=== PATIENT | male | born 1935 | race Caucasian/White ===

== ENCOUNTER 2020-06-28 13:06 | Emergency (ER) | payer MEDICARE ==
[2020-06-28 15:54] LABS: #Eosinphils 0.1 thou/uL (0.0-0.7); #Lymphocytes 1.3 thou/uL (1.20-3.40); #Monocytes 0.8 thou/uL (0.11-0.59); #Neutrophils 6.4 thou/uL (1.40-6.50); %Basophils 0.5 % (0.0-1.0); %Eosinophils 1.2 % (0.0-10.0); %Lymphocytes 14.9 % (21.0-51.0); %Monocytes 9.1 % (0.0-10.0); %Neutrophils 74.4 % (42.0-75.0); Hemoglobin 12.7 g/dL (14.0-18.0); Mean Corpuscular HGB CONC 32.7 g/dL (32.0-36.0); Mean Platelet Volume 8.3 fL (7.4-10.4); Platelet Count 258 thou/uL (130-400); RBC Distribution Width 14.8 % (11.5-14.5); Red Blood Cell (RBC) Count 3.85 mill/uL (4.70-6.10); White Blood Cell (WBC) Count 8.6 thou/uL (4.8-10.8)
[2020-06-28 16:15] LABS: Lactic Acid 1.6 mmol/L (0.5-2.2)
[2020-06-28 16:20] LABS: ALT (SGPT) 7 U/L (8-55); AST (SGOT) 14 U/L (5-34); Albumin 3.1 g/dL (3.4-4.8); Alkaline Phosphatase 53 U/L (40-110); Anion Gap 13 mmol/L (10-20); BUN (Urea Nitrogen) 31 mg/dL (8.4-25.7); Bilirubin, Total 0.6 mg/dL (0.2-1.2); Calc. Creatinine Clearance 0 mL/min (70-130); Calcium 8.9 mg/dL (7.8-10.44); Carbon Dioxide 22 mmol/L (23-31); Chloride 110 mmol/L (98-107); Globulin 3.1 g/dL (2.4-3.5); Glucose 105 mg/dL (83-110); Potassium 3.5 mmol/L (3.5-5.1); Protein, Total 6.2 g/dL (5.8-8.1); Sodium 141 mmol/L (136-145)
[2020-06-28 16:21] LABS: PTT 24.7 sec (22.9-36.1)
[2020-06-28 16:31] LABS: Bacteria/HPF None Seen HPF (None Seen); Bilirubin Negative (Negative); Blood, Urine Negative (Negative); Clarity Clear (Clear); Glucose, Urine (Dipstick) Normal (Negative); Ketone, Urine Negative (Negative); Leukocyte Negative Leu/uL (Negative); Nitrite Negative (Negative); Protein, Urine (Dipstick) 20 mg/dL (Neg-Trace); RBC/HPF 0-3 HPF (0-3); Specific Gravity, Urine 1.021 (1.002-1.036); Squamous Epithelial 0-3 HPF (0-3); Urobilinogen Normal mg/dL (Less than 2); WBC/HPF 0-3 HPF (0-3); pH, Urine 5.5 (5.0-9.0)
== END 2020-06-28 18:49 | disposition home or self-care (01) ==
LOC: ERS 13:06
DX: R53.1 Weakness (principal); R19.7 Diarrhea, unspecified; W19.XXXA Unspecified fall, initial encounter
CPT/HCPCS: 71045; 80053; 81001; 82274; 83605; 85025; 85610; 85730; 86850; 86900; 86901

== ENCOUNTER 2020-11-19 13:24 | Emergency (ER) | payer MEDICARE ==
[2020-11-19] MEDS ORDERED: Acetaminophen 325 MG TAB ONE (15:58)
== END 2020-11-19 16:45 | disposition home or self-care (01) ==
LOC: ERS 13:24
DX: M25.522 Pain in left elbow (principal); W19.XXXA Unspecified fall, initial encounter; I10 Essential (primary) hypertension; Z86.73 Personal history of transient ischemic attack (TIA), and cerebral infarction without residual deficits; Z87.891 Personal history of nicotine dependence

== ENCOUNTER 2023-01-19 18:14 | Inpatient (IN) | payer OTHER ==
[2023-01-19] MEDS ORDERED: hydrALAZINE 20 MG/ML VIAL ONE (18:22)
[2023-01-19 18:36] LABS: #Basophils 0.1 thou/uL (0.0-0.2); #Eosinphils 0.1 thou/uL (0.0-0.7); #Neutrophils 11.2 thou/uL (1.40-6.50); %Basophils 0.4 % (0.0-1.0); %Eosinophils 0.8 % (0.0-10.0); %Lymphocytes 8.2 % (21.0-51.0); %Monocytes 7.4 % (0.0-10.0); %Neutrophils 82.7 % (42.0-75.0); Hematocrit 32.8 % (42.0-52.0); Mean Corpuscular HGB CONC 33.5 g/dL (32.0-36.0); Mean Corpuscular Hemoglobin 33.7 pg (27.0-31.0); Mean Corpuscular Volume 100.6 fl (78.0-98.0); Mean Platelet Volume 10.7 fL (7.4-10.4); Platelet Count 166 10x3/uL (130-400); RBC Distribution Width 14.2 % (11.5-14.5); Red Blood Cell (RBC) Count 3.26 mill/uL (4.70-6.10); White Blood Cell (WBC) Count 13.6 10x3/uL (4.8-10.8)
[2023-01-19 18:48] LABS: PTT 28.5 sec (22.9-36.1)
[2023-01-19 18:49] LABS: INR-International Normal Ratio 1.8; Prothrombin Time 21.4 sec (12.0-14.7)
[2023-01-19 18:58] LABS: Acetaminophen Less than 10 mcg/mL (10.0-30.0); Alcohol Less than 10.0 mg/dL (Less than 10); Lipase 34 U/L (8-78); Magnesium 1.9 mg/dL (1.6-2.6); Salicylate Less than 8.0 mg/dL (15.0-30.0)
[2023-01-19 18:59] LABS: ALT (SGPT) 12 U/L (8-55); AST (SGOT) 20 U/L (5-34); Albumin 3.1 g/dL (3.4-4.8); Alkaline Phosphatase 55 U/L (40-110); Anion Gap 14 mmol/L (10-20); BUN (Urea Nitrogen) 38 mg/dL (8.4-25.7); Bilirubin, Total 0.3 mg/dL (0.2-1.2); CK (CPK) 45 U/L (30-200); Calc. Creatinine Clearance 0 mL/min (70-130); Calcium 8.6 mg/dL (7.8-10.44); Carbon Dioxide 24 mmol/L (23-31); Chloride 106 mmol/L (98-107); Estimated GFR 41; Globulin 2.3 g/dL (2.4-3.5); Glucose 116 mg/dL (83-110); Potassium 4.6 mmol/L (3.5-5.1); Protein, Total 5.4 g/dL (5.8-8.1); Sodium 139 mmol/L (136-145)
[2023-01-19 19:00] LABS: Bilirubin Negative (Negative); Blood, Urine 1+ (Negative); CAUTI Indications for Culture Alt mental st,lethar; Clarity Turbid (Clear); Glucose, Urine (Dipstick) Normal (Negative); Ketone, Urine Negative (Negative); Leukocyte 500 Leu/uL (Negative); Nitrite Negative (Negative); Protein, Urine (Dipstick) 20 mg/dL (Neg-Trace); Specific Gravity, Urine 1.017 (1.002-1.036); Squamous Epithelial 0-3 HPF (0-3); Urobilinogen Normal mg/dL (Less than 2)
[2023-01-19 19:04] LABS: Amphetamine Not Detected (NotDetected); Barbiturates Screen Not Detected (NotDetected); Benzodiazepine Screen Not Detected (NotDetected); Cocaine Metabolite Screen Not Detected (NotDetected); Methadone Not Detected (NotDetected); Methamphetamine Not Detected (NotDetected); Opiate Screen Not Detected (NotDetected); Oxycodone Screen Not Detected (NotDetected); Phencyclidine (PCP) Not Detected (NotDetected); THC/Cannabinoid Screen Not Detected (NotDetected); Tricyclic Screen Not Detected (NotDetected)
[2023-01-19 19:08] LABS: Urine Culture Reflex No No
[2023-01-19] MEDS ORDERED: [UNRECOGNIZED DRUG - OTHER] IV SCH ×3 (20:00→22:00)
[2023-01-19] MEDS ORDERED: HUMAN PROTHROMBIN COMPLX IV SCH ×3 (20:00→22:00)
[2023-01-19] MEDS ORDERED: HUM PROTHROMBIN CPLX IV SCH ×3 (20:00→22:00)
[2023-01-19] MEDS ORDERED: Vancomycin 1 GM VIAL ONE ×4 (20:14→22:02)
[2023-01-19] MEDS ORDERED: Thrombin 5000 UNITS/5 ML VIAL ONE (20:14)
[2023-01-19] MEDS ORDERED: EPINEPHrine 1 MG/ML VIAL ONE (20:16)
[2023-01-19] MEDS ORDERED: Bupivacaine PF 0.5% 30 ML VIAL ONE (20:16)
[2023-01-19] MEDS ORDERED: fentaNYL 50 mcg/mL 1 mL Vial ONE (20:22)
[2023-01-19] MEDS ORDERED: PROPOFOL 20 ML ONE (20:22)
[2023-01-19] MEDS ORDERED: Bacitracin Zinc Ointment 30 gm TUBE ONE (20:29)
[2023-01-19] MEDS ORDERED: Famotidine/PF 20 mg/2ml Vial ONE (20:50)
[2023-01-19] MEDS ORDERED: Lidocaine 2% PF 5 ML VIAL ONE (20:52)
[2023-01-19] MEDS ORDERED: Rocuronium Bromide 10 MG/ML (10ML VIAL) ONE ×3 (20:52→20:55)
[2023-01-19] MEDS ORDERED: Ondansetron PF 4 MG/2 ML Vial ONE ×2 (20:55→21:34)
[2023-01-19] MEDS ORDERED: PHENYLEPHRINE-NS 100 MCG/ML 10 ML SYRINGE ONE ×4 (20:55→22:28)
[2023-01-19] MEDS ORDERED: ePHEDrine Sulfate 50 MG/10 ML VIAL ONE ×2 (20:55→21:36)
[2023-01-19] MEDS ORDERED: PROPOFOL 200 MG/20 ML VIAL ONE (20:55)
[2023-01-19] MEDS ORDERED: Lidocaine 1% PF 5 ML VIAL ONE (20:55)
[2023-01-19] MEDS ORDERED: Dexamethasone 20 MG/5 ML VIAL ONE ×2 (20:55→21:34)
[2023-01-19] MEDS ORDERED: CEFAZOLIN 1 GM VIAL ONE ×2 (21:09)
[2023-01-19] MEDS ORDERED: SUGAMMADEX SODIUM 200 MG/2 ML VIAL ONE (21:34)
[2023-01-19] MEDS: hydrALAZINE 20 MG/ML VIAL SLOW IVP PRN (23:51)
[2023-01-20 03:25] LABS: #Monocytes 0.4 thou/uL (0.11-0.59); #Neutrophils 8.5 thou/uL (1.40-6.50); %Basophils 0.2 % (0.0-1.0); %Lymphocytes 4.1 % (21.0-51.0); %Monocytes 3.9 % (0.0-10.0); %Neutrophils 91.5 % (42.0-75.0); Hemoglobin 10.5 g/dL (14.0-18.0); Mean Corpuscular HGB CONC 31.8 g/dL (32.0-36.0); Mean Corpuscular Hemoglobin 33.3 pg (27.0-31.0); Mean Platelet Volume 10.8 fL (7.4-10.4); Platelet Count 135 10x3/uL (130-400); RBC Distribution Width 14.6 % (11.5-14.5); Red Blood Cell (RBC) Count 3.15 mill/uL (4.70-6.10); White Blood Cell (WBC) Count 9.3 10x3/uL (4.8-10.8)
[2023-01-20 03:52] LABS: Anion Gap 13 mmol/L (10-20); BUN (Urea Nitrogen) 37 mg/dL (8.4-25.7); Calc. Creatinine Clearance 34 mL/min (70-130); Calcium 8.6 mg/dL (7.8-10.44); Carbon Dioxide 22 mmol/L (23-31); Chloride 106 mmol/L (98-107); Estimated GFR 47; Glucose 162 mg/dL (83-110); Mean Corpuscular Volume 104.8 fl (78.0-98.0); Potassium 4.3 mmol/L (3.5-5.1); Sodium 137 mmol/L (136-145)
[2023-01-20] MEDS: hydrALAZINE 20 MG/ML VIAL SLOW IVP PRN ×2 (05:07→09:19)
[2023-01-20] MEDS: CEFAZOLIN 2 GM in Sodium Chloride 0.9% 100 ML IVPB SCH ×3 (05:43→22:30)
[2023-01-20] MEDS ORDERED: Senokot 8.6 MG TAB PO PRN (06:11)
[2023-01-20] MEDS ORDERED: Sodium Chloride 0.9% 500 ML IV SCH (06:15)
[2023-01-20] MEDS: Levothyroxine Sodium 125 MCG TAB PO SCH (06:19)
[2023-01-20] MEDS ORDERED: levETIRAcetam 500 MG/5 ML VIAL SLOW IVP SCH (07:00)
[2023-01-20] MEDS: Tamsulosin HCl 0.4 MG CAP PO SCH (07:32)
[2023-01-20] MEDS: Donepezil HCl 10 MG TAB PO SCH (07:32)
[2023-01-20] MEDS: Carvedilol 6.25 MG TAB PO SCH ×2 (07:32→15:54)
[2023-01-20] MEDS: Pantoprazole 40 MG VIAL IVP SCH (10:00)
[2023-01-20] MEDS: Sodium Chloride 0.9% 1,000 ML IV SCH ×2 (10:34→22:09)
[2023-01-20] MEDS ORDERED: Nystatin Powder 15 GM BOT TOP PRN (21:08)
[2023-01-20] MEDS: Morphine 2 MG/ML VIAL SLOW IVP PRN (21:53)
[2023-01-20] MEDS: levETIRAcetam 500 MG/5 ML VIAL SLOW IVP SCH (21:53)
[2023-01-21] MEDS: hydrALAZINE 20 MG/ML VIAL SLOW IVP PRN ×2 (00:34→01:56)
[2023-01-21] MEDS ORDERED: Sodium Chloride 0.9% 250 ML IV SCH ×2 (04:45→05:00)
[2023-01-21] MEDS: Levothyroxine Sodium 125 MCG TAB PO SCH (05:17)
[2023-01-21] MEDS: CEFAZOLIN 2 GM in Sodium Chloride 0.9% 100 ML IVPB SCH ×3 (05:22→20:45)
[2023-01-21] MEDS: Carvedilol 6.25 MG TAB PO SCH ×2 (08:41→16:25)
[2023-01-21] MEDS: Donepezil HCl 10 MG TAB PO SCH (08:42)
[2023-01-21] MEDS: Tamsulosin HCl 0.4 MG CAP PO SCH (08:42)
[2023-01-21] MEDS: levETIRAcetam 500 MG/5 ML VIAL SLOW IVP SCH ×2 (09:24→20:44)
[2023-01-21] MEDS: Pantoprazole 40 MG VIAL IVP SCH (09:24)
[2023-01-21] MEDS: Labetalol HCl 100 MG/20 ML VIAL SLOW IVP PRN ×2 (11:59→15:22)
[2023-01-21] MEDS: Sodium Chloride 0.9% 1,000 ML IV SCH (12:00)
[2023-01-21] MEDS ORDERED: Ipratropium/Albuterol 3 ML NEB NEB SCH (13:15)
[2023-01-21] MEDS: niCARdipine 25 MG in Sodium Chloride 0.9% 250 ML 250 ML IVPB SCH (16:39)
[2023-01-21] MEDS: Ipratropium/Albuterol 3 ML NEB NEB SCH (18:17)
[2023-01-21] MEDS: Morphine 2 MG/ML VIAL SLOW IVP PRN (21:31)
[2023-01-22] MEDS: niCARdipine 25 MG in Sodium Chloride 0.9% 250 ML 250 ML IVPB SCH (02:19)
[2023-01-22] MEDS: Sodium Chloride 0.9% 1,000 ML IV SCH ×2 (02:20→16:48)
[2023-01-22] MEDS: Levothyroxine Sodium 125 MCG TAB PO SCH (05:18)
[2023-01-22] MEDS: CEFAZOLIN 2 GM in Sodium Chloride 0.9% 100 ML IVPB SCH ×2 (05:18→21:25)
[2023-01-22] MEDS: Ipratropium/Albuterol 3 ML NEB NEB SCH ×4 (07:23→18:06)
[2023-01-22] MEDS: Tamsulosin HCl 0.4 MG CAP PO SCH (08:45)
[2023-01-22] MEDS: Carvedilol 6.25 MG TAB PO SCH ×2 (08:45→16:49)
[2023-01-22] MEDS: Donepezil HCl 10 MG TAB PO SCH (08:45)
[2023-01-22] MEDS: levETIRAcetam 500 MG/5 ML VIAL SLOW IVP SCH ×2 (08:47→21:22)
[2023-01-22] MEDS: Pantoprazole 40 MG VIAL IVP SCH (08:47)
[2023-01-22] MEDS ORDERED: DISCONTINUE PREVIOUS NARCOTIC PAIN MEDICATIONS AND BENZODIAZEPINES FS SCH (09:45)
[2023-01-22] MEDS ORDERED: Fentanyl BOLUS 250 ML IVPB PRN (09:45)
[2023-01-22] MEDS ORDERED: Propofol BOLUS 1,000 MG/100 ML VIAL IV PRN (09:45)
[2023-01-22] MEDS ORDERED: Fentanyl CADD 100 ML IV SCH (09:45)
[2023-01-22] MEDS ORDERED: Midazolam HCl 2 mg/2 ml Vial SLOW IVP SCH (09:45)
[2023-01-22] MEDS ORDERED: Dexmedetomidine 400 MCG, Admixture Fee 1 EACH in Sodium Chloride 0.9% 96 ML IVPB SCH (10:00)
[2023-01-22 10:23] LABS: Actual Bicarbonate (HCO3a) 20.7 mEq/L (22-28); Base Excess (BEa) -2.7 mEq/L (-2.0 to +3.0); CO2 Tension 30.4 mmHg (35.0-45.0); Calcium, Ionized (arterial) 1.11 mmol/L (1.12-1.30); Carboxyhemoglobin (COHb) 0.2 gm% (0.0-3.0); Hematocrit-ABG 26 % (42.0-52.0); Hemoglobin (Hb) 8.7 g/dL (14.0-18.0); O2 Tension (PaO2), arterial 75.7 mmHg (> 60.0); Potassium - ABG Lab 3.35 mmol/L (3.70-5.30); pH, Arterial 7.451 (7.35-7.45)
[2023-01-22 10:25] LABS: Puncture Site RRA
[2023-01-22] MEDS ORDERED: LevoFLOXacin 750 mg/D5W 750 MG in Premix 1 BAG IVPB SCH (12:15)
[2023-01-22] MEDS: LevoFLOXacin 750 mg/D5W 750 MG in Premix 1 BAG IVPB SCH (13:16)
[2023-01-22] MEDS ORDERED: CEFAZOLIN 2 GM in Sodium Chloride 0.9% 100 ML IVPB SCH (17:30)
[2023-01-22] MEDS: Morphine 2 MG/ML VIAL SLOW IVP PRN (18:15)
[2023-01-23] MEDS: Lorazepam 2 MG/ML VIAL SLOW IVP PRN ×4 (00:36→20:30)
[2023-01-23 05:10] LABS: #Monocytes 0.8 thou/uL (0.11-0.59); %Basophils 0.3 % (0.0-1.0); %Lymphocytes 8.5 % (21.0-51.0); %Monocytes 12.1 % (0.0-10.0); %Neutrophils 78.6 % (42.0-75.0); Hematocrit 23.4 % (42.0-52.0); Hemoglobin 7.6 g/dL (14.0-18.0); Mean Corpuscular HGB CONC 32.5 g/dL (32.0-36.0); Mean Corpuscular Hemoglobin 33.3 pg (27.0-31.0); Mean Corpuscular Volume 102.6 fl (78.0-98.0); Mean Platelet Volume 11.4 fL (7.4-10.4); Platelet Count 128 10x3/uL (130-400); RBC Distribution Width 15.4 % (11.5-14.5); Red Blood Cell (RBC) Count 2.28 mill/uL (4.70-6.10); White Blood Cell (WBC) Count 6.4 10x3/uL (4.8-10.8)
[2023-01-23 05:58] LABS: Anion Gap 12 mmol/L (10-20); BUN (Urea Nitrogen) 30 mg/dL (8.4-25.7); Calc. Creatinine Clearance 37 mL/min (70-130); Calcium 7.7 mg/dL (7.8-10.44); Carbon Dioxide 21 mmol/L (23-31); Chloride 116 mmol/L (98-107); Estimated GFR 49; Glucose 86 mg/dL (83-110); Magnesium 1.8 mg/dL (1.6-2.6); Phosphorus 1.9 mg/dL (2.3-4.7); Potassium 3.3 mmol/L (3.5-5.1); Sodium 146 mmol/L (136-145)
[2023-01-23] MEDS: Sodium Chloride 0.9% 1,000 ML IV SCH (06:09)
[2023-01-23] MEDS: Levothyroxine Sodium 125 MCG TAB PO SCH (06:09)
[2023-01-23] MEDS: CEFAZOLIN 2 GM in Sodium Chloride 0.9% 100 ML IVPB SCH ×3 (06:09→22:03)
[2023-01-23] MEDS: Ipratropium/Albuterol 3 ML NEB NEB SCH ×4 (07:16→18:21)
[2023-01-23] MEDS ORDERED: Potassium Phosphate 30 MMOL in Sodium Chloride 0.9% 250 ML 250 ML IVPB SCH (08:15)
[2023-01-23] MEDS ORDERED: Magnesium 2 GM/50 ML(in water) 2 GM in Premix 1 BAG IVPB SCH (08:15)
[2023-01-23] MEDS: Carvedilol 6.25 MG TAB PO SCH ×2 (08:29→16:08)
[2023-01-23] MEDS: Pantoprazole 40 MG VIAL IVP SCH (08:37)
[2023-01-23] MEDS: Tamsulosin HCl 0.4 MG CAP PO SCH (08:37)
[2023-01-23] MEDS: levETIRAcetam 500 MG/5 ML VIAL SLOW IVP SCH ×2 (08:37→21:53)
[2023-01-23] MEDS: Donepezil HCl 10 MG TAB PO SCH (08:38)
[2023-01-23] MEDS ORDERED: FLU VACC QS2023(65UP)/MF59C/PF 60 MCG/0.5 ML SYRINGE IM ONE (09:00)
[2023-01-23] MEDS ORDERED: levETIRAcetam 500 MG/5 ML VIAL SLOW IVP SCH (12:00)
[2023-01-23] MEDS: Scopolamine 1 mg/72 hour Patch TOP SCH (15:30)
[2023-01-23] MEDS: Sodium Chloride 0.45% 1,000 ML IV SCH (17:50)
[2023-01-23] MEDS: Propofol 1,000 MG/100 ML VIAL IV PRN (19:56)
[2023-01-23] MEDS ORDERED: Lacosamide 400 MG in Sodium Chloride 0.9% 50 ML IVPB SCH (22:00)
[2023-01-24 06:02] LABS: #Eosinphils 0.1 thou/uL (0.0-0.7); #Monocytes 0.6 thou/uL (0.11-0.59); #Neutrophils 4.8 thou/uL (1.40-6.50); %Basophils 0.3 % (0.0-1.0); %Eosinophils 1.1 % (0.0-10.0); %Lymphocytes 13.8 % (21.0-51.0); %Monocytes 9.1 % (0.0-10.0); %Neutrophils 74.6 % (42.0-75.0); Hematocrit 22.7 % (42.0-52.0); Hemoglobin 7.3 g/dL (14.0-18.0); Mean Corpuscular HGB CONC 32.2 g/dL (32.0-36.0); Mean Corpuscular Hemoglobin 33.5 pg (27.0-31.0); Mean Corpuscular Volume 104.1 fl (78.0-98.0); Mean Platelet Volume 10.2 fL (7.4-10.4); Platelet Count 131 10x3/uL (130-400); RBC Distribution Width 15.8 % (11.5-14.5); Red Blood Cell (RBC) Count 2.18 mill/uL (4.70-6.10); White Blood Cell (WBC) Count 6.4 10x3/uL (4.8-10.8)
[2023-01-24] MEDS ORDERED: Fosphenytoin Sodium 1,500 MG in Sodium Chloride 0.9% 100 ML IVPB PRN (06:09)
[2023-01-24] MEDS: CEFAZOLIN 2 GM in Sodium Chloride 0.9% 100 ML IVPB SCH ×3 (06:40→21:53)
[2023-01-24 06:43] LABS: Anion Gap 8 mmol/L (10-20); BUN (Urea Nitrogen) 38 mg/dL (8.4-25.7); Calc. Creatinine Clearance 35 mL/min (70-130); Calcium 7.4 mg/dL (7.8-10.44); Carbon Dioxide 23 mmol/L (23-31); Chloride 117 mmol/L (98-107); Estimated GFR 45; Glucose 125 mg/dL (83-110); Magnesium 2.3 mg/dL (1.6-2.6); Phosphorus 2.8 mg/dL (2.3-4.7); Potassium 3.4 mmol/L (3.5-5.1); Sodium 145 mmol/L (136-145)
[2023-01-24] MEDS: Levothyroxine Sodium 125 MCG TAB PO SCH (06:43)
[2023-01-24] MEDS: Ipratropium/Albuterol 3 ML NEB NEB SCH ×4 (07:41→18:11)
[2023-01-24] MEDS ORDERED: Potassium Phosphate 30 MMOL in Sodium Chloride 0.9% 250 ML 250 ML IVPB SCH (07:45)
[2023-01-24] MEDS: Carvedilol 6.25 MG TAB PO SCH ×2 (08:52→16:43)
[2023-01-24] MEDS: Pantoprazole 40 MG VIAL IVP SCH (08:52)
[2023-01-24] MEDS: levETIRAcetam 500 MG/5 ML VIAL SLOW IVP SCH ×2 (08:52→21:53)
[2023-01-24] MEDS: Tamsulosin HCl 0.4 MG CAP PO SCH (08:52)
[2023-01-24] MEDS: Lacosamide 200 MG in Sodium Chloride 0.9% 50 ML IVPB SCH ×2 (09:07→22:38)
[2023-01-24] MEDS: Sodium Chloride 0.45% 1,000 ML IV SCH (13:53)
[2023-01-24] MEDS: LevoFLOXacin 750 mg/D5W 750 MG in Premix 1 BAG IVPB SCH (14:27)
[2023-01-24] MEDS: Propofol 1,000 MG/100 ML VIAL IV PRN (22:48)
[2023-01-25] MEDS: Labetalol HCl 100 MG/20 ML VIAL SLOW IVP PRN (04:34)
[2023-01-25 05:59] LABS: #Eosinphils 0.1 thou/uL (0.0-0.7); #Monocytes 0.8 thou/uL (0.11-0.59); %Basophils 0.6 % (0.0-1.0); %Eosinophils 1.5 % (0.0-10.0); %Lymphocytes 9.4 % (21.0-51.0); %Monocytes 12.5 % (0.0-10.0); %Neutrophils 74.4 % (42.0-75.0); Hematocrit 30.8 % (42.0-52.0); Mean Corpuscular HGB CONC 33.4 g/dL (32.0-36.0); Mean Corpuscular Hemoglobin 32.5 pg (27.0-31.0); Mean Platelet Volume 10.8 fL (7.4-10.4); Platelet Count 149 10x3/uL (130-400); RBC Distribution Width 17.1 % (11.5-14.5); Red Blood Cell (RBC) Count 3.17 mill/uL (4.70-6.10); White Blood Cell (WBC) Count 6.7 10x3/uL (4.8-10.8)
[2023-01-25 06:01] LABS: Anion Gap 11 mmol/L (10-20); BUN (Urea Nitrogen) 40 mg/dL (8.4-25.7); Calc. Creatinine Clearance 40 mL/min (70-130); Calcium 7.1 mg/dL (7.8-10.44); Carbon Dioxide 20 mmol/L (23-31); Chloride 115 mmol/L (98-107); Estimated GFR 53; Glucose 125 mg/dL (83-110); Potassium 4.1 mmol/L (3.5-5.1); Sodium 142 mmol/L (136-145)
[2023-01-25 06:02] LABS: Hemoglobin 10.3 g/dL (14.0-18.0); Mean Corpuscular Volume 97.2 fl (78.0-98.0)
[2023-01-25] MEDS: CEFAZOLIN 2 GM in Sodium Chloride 0.9% 100 ML IVPB SCH ×3 (06:38→21:10)
[2023-01-25] MEDS: Levothyroxine Sodium 125 MCG TAB PO SCH (06:38)
[2023-01-25] MEDS: Ipratropium/Albuterol 3 ML NEB NEB SCH ×4 (07:28→18:33)
[2023-01-25] MEDS ORDERED: Furosemide 40 MG/4 ML VIAL SLOW IVP SCH (08:15)
[2023-01-25] MEDS: Carvedilol 6.25 MG TAB PO SCH ×2 (08:24→16:47)
[2023-01-25] MEDS: levETIRAcetam 500 MG/5 ML VIAL SLOW IVP SCH ×2 (08:24→21:10)
[2023-01-25] MEDS: Pantoprazole 40 MG VIAL IVP SCH (08:24)
[2023-01-25] MEDS: Tamsulosin HCl 0.4 MG CAP PO SCH (08:24)
[2023-01-25] MEDS: LevoFLOXacin 500 MG TAB PER TUBE SCH (08:37)
[2023-01-25] MEDS: Sodium Chloride 0.45% 1,000 ML IV SCH (08:41)
[2023-01-25] MEDS: Lacosamide 200 MG in Sodium Chloride 0.9% 50 ML IVPB SCH ×2 (10:01→21:43)
[2023-01-25] MEDS: Propofol 1,000 MG/100 ML VIAL IV PRN (16:47)
[2023-01-26 05:15] LABS: #Eosinphils 0.2 thou/uL (0.0-0.7); #Monocytes 0.9 thou/uL (0.11-0.59); %Basophils 0.5 % (0.0-1.0); %Eosinophils 2.3 % (0.0-10.0); %Lymphocytes 8.8 % (21.0-51.0); %Monocytes 11.2 % (0.0-10.0); %Neutrophils 75.7 % (42.0-75.0); Mean Corpuscular HGB CONC 33.3 g/dL (32.0-36.0); Mean Corpuscular Hemoglobin 32.2 pg (27.0-31.0); Mean Corpuscular Volume 96.5 fl (78.0-98.0); Mean Platelet Volume 10.6 fL (7.4-10.4); Platelet Count 158 10x3/uL (130-400); RBC Distribution Width 16.6 % (11.5-14.5); Red Blood Cell (RBC) Count 3.42 mill/uL (4.70-6.10)
[2023-01-26 05:56] LABS: Anion Gap 11 mmol/L (10-20); BUN (Urea Nitrogen) 45 mg/dL (8.4-25.7); Calc. Creatinine Clearance 41 mL/min (70-130); Calcium 7.4 mg/dL (7.8-10.44); Carbon Dioxide 25 mmol/L (23-31); Chloride 110 mmol/L (98-107); Estimated GFR 53; Glucose 126 mg/dL (83-110); Potassium 3.9 mmol/L (3.5-5.1); Sodium 142 mmol/L (136-145)
[2023-01-26] MEDS: Levothyroxine Sodium 125 MCG TAB PO SCH (06:14)
[2023-01-26] MEDS: CEFAZOLIN 2 GM in Sodium Chloride 0.9% 100 ML IVPB SCH ×3 (06:14→21:19)
[2023-01-26] MEDS: Ipratropium/Albuterol 3 ML NEB NEB SCH ×4 (07:08→20:08)
[2023-01-26] MEDS ORDERED: Furosemide 40 MG/4 ML VIAL SLOW IVP SCH (08:00)
[2023-01-26] MEDS ORDERED: Furosemide 20 MG/2 ML VIAL SLOW IVP SCH (08:15)
[2023-01-26] MEDS: LevoFLOXacin 500 MG TAB PER TUBE SCH (08:30)
[2023-01-26] MEDS: Propofol 1,000 MG/100 ML VIAL IV PRN (08:30)
[2023-01-26] MEDS: Pantoprazole 40 MG VIAL IVP SCH (08:30)
[2023-01-26] MEDS: Lacosamide 200 MG in Sodium Chloride 0.9% 50 ML IVPB SCH ×2 (08:30→22:54)
[2023-01-26] MEDS: Carvedilol 6.25 MG TAB PO SCH ×2 (08:30→16:00)
[2023-01-26] MEDS: Tamsulosin HCl 0.4 MG CAP PO SCH (08:30)
[2023-01-26] MEDS: levETIRAcetam 500 MG/5 ML VIAL SLOW IVP SCH ×2 (08:30→21:19)
[2023-01-26] MEDS: methylPREDNISolone Sod Succ 40 MG VIAL IVP SCH ×3 (11:05→22:54)
[2023-01-26] MEDS: Scopolamine 1 mg/72 hour Patch TOP SCH (14:15)
[2023-01-26] MEDS: Polyethylene Glycol 3350 17 GM Packet PO PRN (16:00)
[2023-01-26] MEDS: Labetalol HCl 100 MG/20 ML VIAL SLOW IVP PRN (23:14)
[2023-01-27] MEDS: CEFAZOLIN 2 GM in Sodium Chloride 0.9% 100 ML IVPB SCH ×3 (05:34→22:18)
[2023-01-27] MEDS: Levothyroxine Sodium 125 MCG TAB PO SCH (05:35)
[2023-01-27] MEDS: methylPREDNISolone Sod Succ 40 MG VIAL IVP SCH ×4 (05:35→23:41)
[2023-01-27 06:11] LABS: #Monocytes 0.5 thou/uL (0.11-0.59); #Neutrophils 7.5 thou/uL (1.40-6.50); %Basophils 0.2 % (0.0-1.0); %Lymphocytes 5.8 % (21.0-51.0); %Monocytes 6.2 % (0.0-10.0); %Neutrophils 86.6 % (42.0-75.0); Hematocrit 35.7 % (42.0-52.0); Hemoglobin 11.8 g/dL (14.0-18.0); Mean Corpuscular HGB CONC 33.1 g/dL (32.0-36.0); Mean Corpuscular Hemoglobin 32.2 pg (27.0-31.0); Mean Corpuscular Volume 97.3 fl (78.0-98.0); Mean Platelet Volume 10.8 fL (7.4-10.4); Platelet Count 181 10x3/uL (130-400); RBC Distribution Width 16.1 % (11.5-14.5); Red Blood Cell (RBC) Count 3.67 mill/uL (4.70-6.10); White Blood Cell (WBC) Count 8.7 10x3/uL (4.8-10.8)
[2023-01-27 06:32] LABS: Anion Gap 12 mmol/L (10-20); BUN (Urea Nitrogen) 59 mg/dL (8.4-25.7); Calc. Creatinine Clearance 39 mL/min (70-130); Calcium 8.1 mg/dL (7.8-10.44); Carbon Dioxide 24 mmol/L (23-31); Chloride 110 mmol/L (98-107); Estimated GFR 51; Glucose 157 mg/dL (83-110); Potassium 4.3 mmol/L (3.5-5.1); Sodium 142 mmol/L (136-145)
[2023-01-27 07:09] LABS: Actual Bicarbonate (HCO3a) 23.7 mEq/L (22-28); Base Excess (BEa) 1.5 mEq/L (-2.0 to +3.0); Calcium, Ionized (arterial) 1.08 mmol/L (1.12-1.30); Carboxyhemoglobin (COHb) 0.3 gm% (0.0-3.0); Hematocrit-ABG 34 % (42.0-52.0); Hemoglobin (Hb) 11.7 g/dL (14.0-18.0); Potassium - ABG Lab 4.23 mmol/L (3.70-5.30); pH, Arterial 7.516 (7.35-7.45)
[2023-01-27] MEDS: Ipratropium/Albuterol 3 ML NEB NEB SCH ×4 (07:29→18:48)
[2023-01-27 07:32] LABS: Puncture Site RBA
[2023-01-27] MEDS: Propofol 1,000 MG/100 ML VIAL IV PRN ×3 (07:46→22:00)
[2023-01-27] MEDS: levETIRAcetam 500 MG/5 ML VIAL SLOW IVP SCH ×2 (08:42→22:11)
[2023-01-27] MEDS: LevoFLOXacin 500 MG TAB PER TUBE SCH (08:42)
[2023-01-27] MEDS: Tamsulosin HCl 0.4 MG CAP PO SCH (08:42)
[2023-01-27] MEDS: Pantoprazole 40 MG VIAL IVP SCH (08:42)
[2023-01-27] MEDS: Carvedilol 6.25 MG TAB PO SCH ×2 (08:42→19:11)
[2023-01-27] MEDS: Lacosamide 200 MG in Sodium Chloride 0.9% 50 ML IVPB SCH ×2 (09:22→23:01)
[2023-01-27 10:25] LABS: INR-International Normal Ratio 1.1; PTT 25.7 sec (22.9-36.1); Prothrombin Time 14.8 sec (12.0-14.7)
[2023-01-27] MEDS: Labetalol HCl 100 MG/20 ML VIAL SLOW IVP PRN (23:41)
[2023-01-28 04:15] LABS: #Monocytes 0.5 thou/uL (0.11-0.59); #Neutrophils 9.5 thou/uL (1.40-6.50); %Basophils 0.1 % (0.0-1.0); %Lymphocytes 4.4 % (21.0-51.0); %Monocytes 4.6 % (0.0-10.0); %Neutrophils 90.1 % (42.0-75.0); Hematocrit 33.8 % (42.0-52.0); Hemoglobin 11.2 g/dL (14.0-18.0); Mean Corpuscular HGB CONC 33.1 g/dL (32.0-36.0); Mean Corpuscular Hemoglobin 32.8 pg (27.0-31.0); Mean Corpuscular Volume 99.1 fl (78.0-98.0); Mean Platelet Volume 10.6 fL (7.4-10.4); Platelet Count 196 10x3/uL (130-400); RBC Distribution Width 16.1 % (11.5-14.5); Red Blood Cell (RBC) Count 3.41 mill/uL (4.70-6.10); White Blood Cell (WBC) Count 10.5 10x3/uL (4.8-10.8)
[2023-01-28 04:38] LABS: Anion Gap 13 mmol/L (10-20); BUN (Urea Nitrogen) 66 mg/dL (8.4-25.7); Calc. Creatinine Clearance 41 mL/min (70-130); Calcium 8.1 mg/dL (7.8-10.44); Carbon Dioxide 25 mmol/L (23-31); Chloride 109 mmol/L (98-107); Estimated GFR 53; Glucose 157 mg/dL (83-110); Potassium 4.6 mmol/L (3.5-5.1); Sodium 142 mmol/L (136-145)
[2023-01-28] MEDS: Levothyroxine Sodium 125 MCG TAB PO SCH (06:29)
[2023-01-28] MEDS: CEFAZOLIN 2 GM in Sodium Chloride 0.9% 100 ML IVPB SCH (06:29)
[2023-01-28 06:34] LABS: Actual Bicarbonate (HCO3a) 22.8 mEq/L (22-28); Base Excess (BEa) -1.6 mEq/L (-2.0 to +3.0); CO2 Tension 37.3 mmHg (35.0-45.0); Carboxyhemoglobin (COHb) 0.3 gm% (0.0-3.0); Hematocrit-ABG 35 % (42.0-52.0); Hemoglobin (Hb) 11.9 g/dL (14.0-18.0); O2 Tension (PaO2), arterial 93.9 mmHg (> 60.0); Potassium - ABG Lab 4.47 mmol/L (3.70-5.30); pH, Arterial 7.404 (7.35-7.45)
[2023-01-28] MEDS: Ipratropium/Albuterol 3 ML NEB NEB SCH ×4 (06:47→18:30)
[2023-01-28 06:48] LABS: ALV-art Gradient 73.375 mmHg (0-20); Puncture Site RRA
[2023-01-28] MEDS: methylPREDNISolone Sod Succ 40 MG VIAL IVP SCH ×4 (07:13→23:45)
[2023-01-28] MEDS: LevoFLOXacin 500 MG TAB PER TUBE SCH (07:49)
[2023-01-28] MEDS: Pantoprazole 40 MG VIAL IVP SCH (07:49)
[2023-01-28] MEDS: Carvedilol 6.25 MG TAB PO SCH ×2 (07:49→17:12)
[2023-01-28] MEDS: Tamsulosin HCl 0.4 MG CAP PO SCH (07:49)
[2023-01-28] MEDS: levETIRAcetam 500 MG/5 ML VIAL SLOW IVP SCH ×2 (07:49→20:40)
[2023-01-28] MEDS: Lacosamide 200 MG in Sodium Chloride 0.9% 50 ML IVPB SCH ×2 (09:13→21:43)
[2023-01-28] MEDS ORDERED: Sodium Chloride 0.9% 100 ML ONE (20:38)
[2023-01-29] MEDS: Propofol 1,000 MG/100 ML VIAL IV PRN ×2 (00:13→14:42)
[2023-01-29 04:09] LABS: #Monocytes 0.8 thou/uL (0.11-0.59); #Neutrophils 9.8 thou/uL (1.40-6.50); %Lymphocytes 4.1 % (21.0-51.0); %Monocytes 7.1 % (0.0-10.0); %Neutrophils 87.7 % (42.0-75.0); Hematocrit 34.8 % (42.0-52.0); Hemoglobin 11.3 g/dL (14.0-18.0); Mean Corpuscular HGB CONC 32.5 g/dL (32.0-36.0); Mean Corpuscular Hemoglobin 32.7 pg (27.0-31.0); Mean Corpuscular Volume 100.6 fl (78.0-98.0); Mean Platelet Volume 10.5 fL (7.4-10.4); Platelet Count 197 10x3/uL (130-400); RBC Distribution Width 15.9 % (11.5-14.5); Red Blood Cell (RBC) Count 3.46 mill/uL (4.70-6.10); White Blood Cell (WBC) Count 11.2 10x3/uL (4.8-10.8)
[2023-01-29 04:36] LABS: Anion Gap 14 mmol/L (10-20); BUN (Urea Nitrogen) 79 mg/dL (8.4-25.7); Calc. Creatinine Clearance 46 mL/min (70-130); Calcium 8.3 mg/dL (7.8-10.44); Carbon Dioxide 25 mmol/L (23-31); Chloride 110 mmol/L (98-107); Estimated GFR 58; Glucose 147 mg/dL (83-110); Potassium 4.9 mmol/L (3.5-5.1); Sodium 144 mmol/L (136-145)
[2023-01-29] MEDS: methylPREDNISolone Sod Succ 40 MG VIAL IVP SCH ×2 (05:55→20:09)
[2023-01-29] MEDS: Levothyroxine Sodium 125 MCG TAB PO SCH (05:55)
[2023-01-29] MEDS: Ipratropium/Albuterol 3 ML NEB NEB SCH ×4 (06:59→19:23)
[2023-01-29] MEDS: LevoFLOXacin 500 MG TAB PER TUBE SCH (08:18)
[2023-01-29] MEDS: Tamsulosin HCl 0.4 MG CAP PO SCH (08:18)
[2023-01-29] MEDS: Carvedilol 6.25 MG TAB PO SCH ×2 (08:18→17:25)
[2023-01-29] MEDS: levETIRAcetam 500 MG/5 ML VIAL SLOW IVP SCH ×2 (08:19→20:09)
[2023-01-29] MEDS: Pantoprazole 40 MG VIAL IVP SCH (08:19)
[2023-01-29] MEDS: Lacosamide 200 MG in Sodium Chloride 0.9% 50 ML IVPB SCH ×2 (09:23→20:09)
[2023-01-29] MEDS: Scopolamine 1 mg/72 hour Patch TOP SCH (14:42)
[2023-01-30 05:28] LABS: #Monocytes 0.9 thou/uL (0.11-0.59); #Neutrophils 8.5 thou/uL (1.40-6.50); %Basophils 0.1 % (0.0-1.0); %Lymphocytes 5.2 % (21.0-51.0); %Monocytes 8.5 % (0.0-10.0); %Neutrophils 85.2 % (42.0-75.0); Hematocrit 33.8 % (42.0-52.0); Hemoglobin 10.9 g/dL (14.0-18.0); Mean Corpuscular HGB CONC 32.2 g/dL (32.0-36.0); Mean Corpuscular Hemoglobin 32.5 pg (27.0-31.0); Mean Corpuscular Volume 100.9 fl (78.0-98.0); Mean Platelet Volume 10.8 fL (7.4-10.4); Platelet Count 181 10x3/uL (130-400); RBC Distribution Width 15.9 % (11.5-14.5); Red Blood Cell (RBC) Count 3.35 mill/uL (4.70-6.10)
[2023-01-30] MEDS: Levothyroxine Sodium 125 MCG TAB PO SCH (05:53)
[2023-01-30 05:55] LABS: Anion Gap 15 mmol/L (10-20); BUN (Urea Nitrogen) 86 mg/dL (8.4-25.7); Calc. Creatinine Clearance 46 mL/min (70-130); Calcium 8.3 mg/dL (7.8-10.44); Carbon Dioxide 25 mmol/L (23-31); Chloride 109 mmol/L (98-107); Estimated GFR 58; Glucose 142 mg/dL (83-110); Potassium 4.9 mmol/L (3.5-5.1); Sodium 144 mmol/L (136-145)
[2023-01-30] MEDS: Ipratropium/Albuterol 3 ML NEB NEB SCH ×4 (07:20→19:01)
[2023-01-30] MEDS: Carvedilol 6.25 MG TAB PO SCH ×2 (08:04→16:46)
[2023-01-30] MEDS: methylPREDNISolone Sod Succ 40 MG VIAL IVP SCH ×2 (08:04→20:48)
[2023-01-30] MEDS: LevoFLOXacin 500 MG TAB PER TUBE SCH (08:04)
[2023-01-30] MEDS: Tamsulosin HCl 0.4 MG CAP PO SCH (08:04)
[2023-01-30] MEDS: levETIRAcetam 500 MG/5 ML VIAL SLOW IVP SCH ×2 (08:04→20:48)
[2023-01-30] MEDS: Pantoprazole 40 MG VIAL IVP SCH (08:04)
[2023-01-30] MEDS: Lacosamide 200 MG in Sodium Chloride 0.9% 50 ML IVPB SCH ×2 (09:43→20:48)
[2023-01-30] MEDS: Labetalol HCl 100 MG/20 ML VIAL SLOW IVP PRN (22:35)
[2023-01-31] MEDS: Morphine 2 MG/ML VIAL SLOW IVP PRN (00:14)
[2023-01-31 05:07] LABS: #Monocytes 0.8 thou/uL (0.11-0.59); #Neutrophils 8.1 thou/uL (1.40-6.50); %Basophils 0.1 % (0.0-1.0); %Lymphocytes 7.2 % (21.0-51.0); %Monocytes 8.2 % (0.0-10.0); %Neutrophils 83.7 % (42.0-75.0); Hematocrit 32.6 % (42.0-52.0); Hemoglobin 10.7 g/dL (14.0-18.0); Mean Corpuscular HGB CONC 32.8 g/dL (32.0-36.0); Mean Corpuscular Hemoglobin 33.1 pg (27.0-31.0); Mean Corpuscular Volume 100.9 fl (78.0-98.0); Mean Platelet Volume 10.2 fL (7.4-10.4); Platelet Count 176 10x3/uL (130-400); RBC Distribution Width 15.9 % (11.5-14.5); Red Blood Cell (RBC) Count 3.23 mill/uL (4.70-6.10); White Blood Cell (WBC) Count 9.6 10x3/uL (4.8-10.8)
[2023-01-31] MEDS: Levothyroxine Sodium 125 MCG TAB PO SCH (05:12)
[2023-01-31 05:34] LABS: Anion Gap 13 mmol/L (10-20); BUN (Urea Nitrogen) 86 mg/dL (8.4-25.7); Calc. Creatinine Clearance 45 mL/min (70-130); Calcium 8.3 mg/dL (7.8-10.44); Carbon Dioxide 26 mmol/L (23-31); Chloride 110 mmol/L (98-107); Estimated GFR 57; Glucose 135 mg/dL (83-110); Potassium 4.8 mmol/L (3.5-5.1); Sodium 144 mmol/L (136-145)
[2023-01-31] MEDS: Ipratropium/Albuterol 3 ML NEB NEB SCH ×4 (07:07→18:42)
[2023-01-31] MEDS: levETIRAcetam 500 MG/5 ML VIAL SLOW IVP SCH ×2 (08:09→20:37)
[2023-01-31] MEDS: Tamsulosin HCl 0.4 MG CAP PO SCH (08:10)
[2023-01-31] MEDS: Carvedilol 6.25 MG TAB PO SCH ×2 (08:10→17:56)
[2023-01-31] MEDS: methylPREDNISolone Sod Succ 40 MG VIAL IVP SCH ×2 (08:10→20:37)
[2023-01-31] MEDS: Pantoprazole 40 MG VIAL IVP SCH (08:10)
[2023-01-31] MEDS: LevoFLOXacin 500 MG TAB PER TUBE SCH (08:11)
[2023-01-31] MEDS: Lacosamide 200 MG in Sodium Chloride 0.9% 50 ML IVPB SCH ×2 (09:27→20:48)
[2023-01-31] MEDS: Labetalol HCl 100 MG/20 ML VIAL SLOW IVP PRN (23:20)
[2023-02-01] MEDS: hydrALAZINE 20 MG/ML VIAL SLOW IVP PRN (02:27)
[2023-02-01 04:38] LABS: #Monocytes 0.4 thou/uL (0.11-0.59); #Neutrophils 10.2 thou/uL (1.40-6.50); %Basophils 0.1 % (0.0-1.0); %Lymphocytes 4.9 % (21.0-51.0); %Monocytes 3.8 % (0.0-10.0); %Neutrophils 90.5 % (42.0-75.0); Hematocrit 36.1 % (42.0-52.0); Hemoglobin 11.6 g/dL (14.0-18.0); Mean Corpuscular HGB CONC 32.1 g/dL (32.0-36.0); Mean Corpuscular Hemoglobin 32.7 pg (27.0-31.0); Mean Corpuscular Volume 101.7 fl (78.0-98.0); Mean Platelet Volume 10.2 fL (7.4-10.4); Platelet Count 193 10x3/uL (130-400); RBC Distribution Width 15.6 % (11.5-14.5); Red Blood Cell (RBC) Count 3.55 mill/uL (4.70-6.10); White Blood Cell (WBC) Count 11.3 10x3/uL (4.8-10.8)
[2023-02-01 05:09] LABS: Anion Gap 13 mmol/L (10-20); BUN (Urea Nitrogen) 79 mg/dL (8.4-25.7); Calc. Creatinine Clearance 52 mL/min (70-130); Calcium 8.7 mg/dL (7.8-10.44); Carbon Dioxide 27 mmol/L (23-31); Chloride 109 mmol/L (98-107); Estimated GFR 69; Glucose 92 mg/dL (83-110); Potassium 5.3 mmol/L (3.5-5.1); Sodium 144 mmol/L (136-145)
[2023-02-01] MEDS: Levothyroxine Sodium 125 MCG TAB PO SCH (05:25)
[2023-02-01] MEDS: Ipratropium/Albuterol 3 ML NEB NEB SCH ×4 (07:20→18:31)
[2023-02-01] MEDS: Carvedilol 6.25 MG TAB PO SCH ×2 (08:49→15:33)
[2023-02-01] MEDS: Lansoprazole 15 MG/5 ML (BATCHED)UDCUP PER TUBE SCH (08:49)
[2023-02-01] MEDS: levETIRAcetam 500 MG/5 ML VIAL SLOW IVP SCH ×2 (08:50→20:52)
[2023-02-01] MEDS: methylPREDNISolone Sod Succ 40 MG VIAL IVP SCH ×2 (08:50→20:52)
[2023-02-01] MEDS: Scopolamine 1 mg/72 hour Patch TOP SCH (08:51)
[2023-02-01] MEDS: Tamsulosin HCl 0.4 MG CAP PO SCH (10:52)
[2023-02-01] MEDS: Lacosamide 200 MG in Sodium Chloride 0.9% 50 ML IVPB SCH ×2 (11:11→20:51)
[2023-02-02] MEDS: hydrALAZINE 20 MG/ML VIAL SLOW IVP PRN (00:10)
[2023-02-02 05:44] LABS: Anion Gap 16 mmol/L (10-20); BUN (Urea Nitrogen) 72 mg/dL (8.4-25.7); Calc. Creatinine Clearance 53 mL/min (70-130); Calcium 8.8 mg/dL (7.8-10.44); Carbon Dioxide 22 mmol/L (23-31); Chloride 111 mmol/L (98-107); Estimated GFR 70; Glucose 86 mg/dL (83-110); Magnesium 2.1 mg/dL (1.6-2.6); Potassium 5.4 mmol/L (3.5-5.1); Sodium 144 mmol/L (136-145)
[2023-02-02 05:57] LABS: Phosphorus 4.2 mg/dL (2.3-4.7)
[2023-02-02] MEDS: Levothyroxine Sodium 125 MCG TAB PO SCH (06:10)
[2023-02-02 06:32] LABS: #Monocytes 0.5 thou/uL (0.11-0.59); #Neutrophils 10.4 thou/uL (1.40-6.50); %Basophils 0.2 % (0.0-1.0); %Eosinophils 0.1 % (0.0-10.0); %Lymphocytes 4.9 % (21.0-51.0); %Neutrophils 90.2 % (42.0-75.0); Hematocrit 40.2 % (42.0-52.0); Mean Corpuscular HGB CONC 32.3 g/dL (32.0-36.0); Mean Corpuscular Hemoglobin 32.5 pg (27.0-31.0); Mean Corpuscular Volume 100.5 fl (78.0-98.0); Mean Platelet Volume 10.8 fL (7.4-10.4); Platelet Count 182 10x3/uL (130-400); RBC Distribution Width 15.6 % (11.5-14.5); White Blood Cell (WBC) Count 11.5 10x3/uL (4.8-10.8)
[2023-02-02] MEDS: Ipratropium/Albuterol 3 ML NEB NEB SCH ×4 (07:28→18:38)
[2023-02-02] MEDS: Carvedilol 6.25 MG TAB PO SCH ×2 (08:56→16:36)
[2023-02-02] MEDS: Lansoprazole 15 MG/5 ML (BATCHED)UDCUP PER TUBE SCH (08:56)
[2023-02-02] MEDS: Tamsulosin HCl 0.4 MG CAP PO SCH (08:56)
[2023-02-02] MEDS: Lacosamide 200 MG in Sodium Chloride 0.9% 50 ML IVPB SCH ×2 (08:58→21:08)
[2023-02-02] MEDS: levETIRAcetam 500 MG/5 ML VIAL SLOW IVP SCH ×2 (08:58→20:30)
[2023-02-02] MEDS: methylPREDNISolone Sod Succ 40 MG VIAL IVP SCH (09:06)
[2023-02-02 17:30] LABS: Anion Gap 15 mmol/L (10-20); BUN (Urea Nitrogen) 72 mg/dL (8.4-25.7); Calc. Creatinine Clearance 50 mL/min (70-130); Calcium 8.7 mg/dL (7.8-10.44); Carbon Dioxide 20 mmol/L (23-31); Chloride 113 mmol/L (98-107); Estimated GFR 68; Glucose 147 mg/dL (83-110); Potassium 5.3 mmol/L (3.5-5.1); Sodium 143 mmol/L (136-145)
[2023-02-02] MEDS ORDERED: Haloperidol Lactate 5 MG/ML VIAL IM PRN (23:38)
[2023-02-03] MEDS: Labetalol HCl 100 MG/20 ML VIAL SLOW IVP PRN (04:02)
[2023-02-03] MEDS: hydrALAZINE 20 MG/ML VIAL SLOW IVP PRN (04:55)
[2023-02-03] MEDS: Levothyroxine Sodium 125 MCG TAB PO SCH (05:23)
[2023-02-03 06:19] LABS: #Eosinphils 0.1 thou/uL (0.0-0.7); #Monocytes 0.8 thou/uL (0.11-0.59); #Neutrophils 12.7 thou/uL (1.40-6.50); %Basophils 0.1 % (0.0-1.0); %Eosinophils 0.8 % (0.0-10.0); %Lymphocytes 5.3 % (21.0-51.0); %Monocytes 5.7 % (0.0-10.0); %Neutrophils 87.8 % (42.0-75.0); Hematocrit 38.4 % (42.0-52.0); Hemoglobin 12.2 g/dL (14.0-18.0); Mean Corpuscular HGB CONC 31.8 g/dL (32.0-36.0); Mean Corpuscular Hemoglobin 32.7 pg (27.0-31.0); Mean Corpuscular Volume 102.9 fl (78.0-98.0); Mean Platelet Volume 10.6 fL (7.4-10.4); Platelet Count 167 10x3/uL (130-400); RBC Distribution Width 15.7 % (11.5-14.5); Red Blood Cell (RBC) Count 3.73 mill/uL (4.70-6.10); White Blood Cell (WBC) Count 14.5 10x3/uL (4.8-10.8)
[2023-02-03 06:26] LABS: Phosphorus 4.1 mg/dL (2.3-4.7)
[2023-02-03 06:34] LABS: Anion Gap 14 mmol/L (10-20); BUN (Urea Nitrogen) 69 mg/dL (8.4-25.7); Calc. Creatinine Clearance 51 mL/min (70-130); Calcium 8.5 mg/dL (7.8-10.44); Carbon Dioxide 22 mmol/L (23-31); Chloride 114 mmol/L (98-107); Estimated GFR 70; Glucose 123 mg/dL (83-110); Sodium 145 mmol/L (136-145)
[2023-02-03] MEDS: Ipratropium/Albuterol 3 ML NEB NEB SCH ×4 (07:53→19:32)
[2023-02-03] MEDS: Carvedilol 6.25 MG TAB PO SCH ×2 (08:44→16:47)
[2023-02-03] MEDS: Tamsulosin HCl 0.4 MG CAP PO SCH (08:44)
[2023-02-03] MEDS: levETIRAcetam 500 MG/5 ML VIAL SLOW IVP SCH ×2 (09:25→20:32)
[2023-02-03] MEDS: Lacosamide 200 MG in Sodium Chloride 0.9% 50 ML IVPB SCH ×2 (09:25→21:01)
[2023-02-03] MEDS: Lansoprazole 15 MG/5 ML (BATCHED)UDCUP PER TUBE SCH (09:26)
[2023-02-03] MEDS: methylPREDNISolone Sod Succ 40 MG VIAL IVP SCH (09:31)
[2023-02-04] MEDS: Levothyroxine Sodium 125 MCG TAB PO SCH (05:10)
[2023-02-04 06:31] LABS: #Eosinphils 0.1 thou/uL (0.0-0.7); #Monocytes 0.6 thou/uL (0.11-0.59); #Neutrophils 10.4 thou/uL (1.40-6.50); %Basophils 0.1 % (0.0-1.0); %Eosinophils 0.5 % (0.0-10.0); %Lymphocytes 4.1 % (21.0-51.0); %Monocytes 5.2 % (0.0-10.0); %Neutrophils 89.7 % (42.0-75.0); Hematocrit 37.9 % (42.0-52.0); Hemoglobin 12.3 g/dL (14.0-18.0); Mean Corpuscular HGB CONC 32.5 g/dL (32.0-36.0); Mean Corpuscular Hemoglobin 32.7 pg (27.0-31.0); Mean Corpuscular Volume 100.8 fl (78.0-98.0); Mean Platelet Volume 10.3 fL (7.4-10.4); Platelet Count 177 10x3/uL (130-400); RBC Distribution Width 15.9 % (11.5-14.5); Red Blood Cell (RBC) Count 3.76 mill/uL (4.70-6.10); White Blood Cell (WBC) Count 11.6 10x3/uL (4.8-10.8)
[2023-02-04 06:56] LABS: Phosphorus 4.1 mg/dL (2.3-4.7)
[2023-02-04 07:00] LABS: Anion Gap 14 mmol/L (10-20); BUN (Urea Nitrogen) 71 mg/dL (8.4-25.7); Calc. Creatinine Clearance 50 mL/min (70-130); Carbon Dioxide 26 mmol/L (23-31); Chloride 113 mmol/L (98-107); Estimated GFR 66; Glucose 137 mg/dL (83-110); Magnesium 2.2 mg/dL (1.6-2.6); Potassium 4.6 mmol/L (3.5-5.1); Sodium 148 mmol/L (136-145)
[2023-02-04] MEDS: Ipratropium/Albuterol 3 ML NEB NEB SCH ×4 (07:42→18:49)
[2023-02-04] MEDS: levETIRAcetam 500 MG/5 ML VIAL SLOW IVP SCH ×2 (08:49→20:51)
[2023-02-04] MEDS: Lansoprazole 15 MG/5 ML (BATCHED)UDCUP PER TUBE SCH (09:00)
[2023-02-04] MEDS: Atorvastatin Calcium 10 MG TAB PO SCH (09:00)
[2023-02-04] MEDS: Carvedilol 6.25 MG TAB PO SCH ×2 (09:00→16:32)
[2023-02-04] MEDS: Lacosamide 200 MG in Sodium Chloride 0.9% 50 ML IVPB SCH ×2 (09:12→20:49)
[2023-02-04] MEDS: Tamsulosin HCl 0.4 MG CAP PO SCH (09:14)
[2023-02-04] MEDS: Lactated Ringer's 1,000 ML IV SCH ×2 (11:56→20:51)
[2023-02-04] MEDS: Scopolamine 1 mg/72 hour Patch TOP SCH (16:33)
[2023-02-04 18:53] LABS: Troponin I 0.015 ng/mL (< 0.028)
[2023-02-04 18:55] LABS: ALT (SGPT) Less than 7 U/L (8-55); AST (SGOT) 16 U/L (5-34); Albumin 2.1 g/dL (3.4-4.8); Alkaline Phosphatase 56 U/L (40-110); Anion Gap 13 mmol/L (10-20); BUN (Urea Nitrogen) 71 mg/dL (8.4-25.7); Bilirubin, Total 0.3 mg/dL (0.2-1.2); Calc. Creatinine Clearance 50 mL/min (70-130); Calcium 8.4 mg/dL (7.8-10.44); Carbon Dioxide 25 mmol/L (23-31); Chloride 117 mmol/L (98-107); Estimated GFR 67; Globulin 2.3 g/dL (2.4-3.5); Glucose 108 mg/dL (83-110); Protein, Total 4.4 g/dL (5.8-8.1); Sodium 150 mmol/L (136-145)
[2023-02-05 05:40] LABS: #Eosinphils 0.1 thou/uL (0.0-0.7); #Monocytes 0.7 thou/uL (0.11-0.59); #Neutrophils 8.2 thou/uL (1.40-6.50); %Basophils 0.1 % (0.0-1.0); %Eosinophils 1.1 % (0.0-10.0); %Lymphocytes 5.6 % (21.0-51.0); %Monocytes 7.5 % (0.0-10.0); %Neutrophils 85.5 % (42.0-75.0); Hematocrit 33.4 % (42.0-52.0); Hemoglobin 10.7 g/dL (14.0-18.0); Mean Corpuscular Hemoglobin 32.4 pg (27.0-31.0); Mean Corpuscular Volume 101.2 fl (78.0-98.0); Mean Platelet Volume 11.2 fL (7.4-10.4); Platelet Count 170 10x3/uL (130-400); White Blood Cell (WBC) Count 9.6 10x3/uL (4.8-10.8)
[2023-02-05 06:03] LABS: Anion Gap 13 mmol/L (10-20); BUN (Urea Nitrogen) 69 mg/dL (8.4-25.7); Calc. Creatinine Clearance 52 mL/min (70-130); Calcium 8.6 mg/dL (7.8-10.44); Carbon Dioxide 25 mmol/L (23-31); Chloride 117 mmol/L (98-107); Estimated GFR 71; Glucose 107 mg/dL (83-110); Sodium 150 mmol/L (136-145)
[2023-02-05] MEDS: Levothyroxine Sodium 125 MCG TAB PO SCH (06:35)
[2023-02-05] MEDS: Ipratropium/Albuterol 3 ML NEB NEB SCH ×4 (08:33→19:04)
[2023-02-05] MEDS: Atorvastatin Calcium 10 MG TAB PO SCH (09:13)
[2023-02-05] MEDS: Carvedilol 6.25 MG TAB PO SCH ×2 (09:13→16:19)
[2023-02-05] MEDS: levETIRAcetam 500 MG/5 ML VIAL SLOW IVP SCH (09:14)
[2023-02-05] MEDS: Lacosamide 200 MG in Sodium Chloride 0.9% 50 ML IVPB SCH ×2 (09:14→21:40)
[2023-02-05] MEDS: Lansoprazole 15 MG/5 ML (BATCHED)UDCUP PER TUBE SCH (09:22)
[2023-02-05] MEDS: Tamsulosin HCl 0.4 MG CAP PO SCH (09:22)
[2023-02-05] MEDS ORDERED: levETIRAcetam 500 MG TAB PO SCH (21:00)
[2023-02-05] MEDS ORDERED: Lacosamide 50 mg Tablet PO SCH (21:00)
[2023-02-05] MEDS ORDERED: Melatonin 3 MG TAB PO SCH (21:00)
[2023-02-05] MEDS: levETIRAcetam 500 mg/5 ml Oral Solution PO SCH (21:36)
[2023-02-05] MEDS: Amantadine HCl 100 mg Capsule PO SCH (21:37)
[2023-02-06] MEDS: Levothyroxine Sodium 125 MCG TAB PO SCH (05:56)
[2023-02-06] MEDS: Ipratropium/Albuterol 3 ML NEB NEB SCH ×6 (07:47→19:30)
[2023-02-06] MEDS: levETIRAcetam 500 mg/5 ml Oral Solution PO SCH (09:59)
[2023-02-06] MEDS: Carvedilol 6.25 MG TAB PO SCH (09:59)
[2023-02-06] MEDS: Amantadine HCl 100 mg Capsule PO SCH ×2 (09:59→21:48)
[2023-02-06] MEDS: Tamsulosin HCl 0.4 MG CAP PO SCH (09:59)
[2023-02-06] MEDS: Atorvastatin Calcium 10 MG TAB PO SCH (09:59)
[2023-02-06] MEDS: Lansoprazole 15 MG/5 ML (BATCHED)UDCUP PER TUBE SCH (09:59)
[2023-02-06] MEDS: Lacosamide 200 MG in Sodium Chloride 0.9% 50 ML IVPB SCH ×2 (09:59→21:45)
[2023-02-06] MEDS: Polyethylene Glycol 3350 17 GM Packet PO PRN (09:59)
[2023-02-06] MEDS ORDERED: Lorazepam 2 MG/ML VIAL SLOW IVP SCH (12:01)
[2023-02-06] MEDS ORDERED: Scopolamine 1 mg/72 hour Patch TD SCH (14:00)
[2023-02-06] MEDS ORDERED: Furosemide 20 MG/2 ML VIAL SLOW IVP SCH ×2 (14:00→20:00)
[2023-02-06] MEDS: Hydrocortisone Sod Succ/PF 100 mg/2 ml Vial IVP SCH ×2 (14:53→21:43)
[2023-02-06] MEDS: Scopolamine 1 mg/72 hour Patch TD SCH (14:54)
[2023-02-06] MEDS ORDERED: Piperacillin/Tazobactam 3.375 GM in Sodium Chloride 0.9% 100 ML IVPB SCH (15:00)
[2023-02-06 15:37] LABS: Actual Bicarbonate (HCO3a) 25.3 mEq/L (22-28); Base Excess (BEa) 1.3 mEq/L (-2.0 to +3.0); CO2 Tension 37.7 mmHg (35.0-45.0); Calcium, Ionized (arterial) 1.19 mmol/L (1.12-1.30); Carboxyhemoglobin (COHb) 0.7 gm% (0.0-3.0); Hematocrit-ABG 31 % (42.0-52.0); Hemoglobin (Hb) 10.5 g/dL (14.0-18.0); Potassium - ABG Lab 4.57 mmol/L (3.70-5.30); pH, Arterial 7.445 (7.35-7.45)
[2023-02-06 15:41] LABS: ALV-art Gradient 45.105 mmHg (0-20); O2 Tension (PaO2), arterial 57.5 mmHg (> 60.0); Puncture Site RRA
[2023-02-06] MEDS: DRY MOUTH SPRAY PO SCH ×4 (17:02→23:15)
[2023-02-06 18:26] LABS: #Monocytes 0.9 thou/uL (0.11-0.59); #Neutrophils 8.4 thou/uL (1.40-6.50); %Basophils 0.1 % (0.0-1.0); %Eosinophils 0.4 % (0.0-10.0); %Lymphocytes 5.7 % (21.0-51.0); %Monocytes 8.6 % (0.0-10.0); %Neutrophils 84.9 % (42.0-75.0); Hematocrit 31.9 % (42.0-52.0); Hemoglobin 10.4 g/dL (14.0-18.0); Mean Corpuscular HGB CONC 32.6 g/dL (32.0-36.0); Mean Corpuscular Hemoglobin 33.4 pg (27.0-31.0); Mean Corpuscular Volume 102.6 fl (78.0-98.0); Mean Platelet Volume 11.2 fL (7.4-10.4); Platelet Count 163 10x3/uL (130-400); RBC Distribution Width 16.3 % (11.5-14.5); Red Blood Cell (RBC) Count 3.11 mill/uL (4.70-6.10); White Blood Cell (WBC) Count 9.8 10x3/uL (4.8-10.8)
[2023-02-06 18:51] LABS: Anion Gap 14 mmol/L (10-20); BUN (Urea Nitrogen) 74 mg/dL (8.4-25.7); Calc. Creatinine Clearance 44 mL/min (70-130); Calcium 8.3 mg/dL (7.8-10.44); Carbon Dioxide 23 mmol/L (23-31); Chloride 116 mmol/L (98-107); Estimated GFR 55; Glucose 91 mg/dL (83-110); Magnesium 2.1 mg/dL (1.6-2.6); Phosphorus 3.4 mg/dL (2.3-4.7); Potassium 4.7 mmol/L (3.5-5.1); Sodium 148 mmol/L (136-145)
[2023-02-06] MEDS ORDERED: Donepezil HCl 5 MG TAB PO SCH (21:00)
[2023-02-06] MEDS: Piperacillin/Tazobactam 3.375 GM in Sodium Chloride 0.9% 100 ML IVPB SCH (21:41)
[2023-02-06] MEDS: levETIRAcetam 500 MG/5 ML VIAL SLOW IVP SCH (21:48)
[2023-02-06 23:41] LABS: Bacteria/HPF None Seen HPF (None Seen); Bilirubin Negative (Negative); Blood, Urine Negative (Negative); CAUTI Indications for Culture Alt mental st,lethar; Clarity Clear (Clear); Glucose, Urine (Dipstick) Normal (Negative); Ketone, Urine Negative (Negative); Leukocyte Negative Leu/uL (Negative); Nitrite Negative (Negative); Protein, Urine (Dipstick) Negative (Neg-Trace); RBC/HPF 0-3 HPF (0-3); Specific Gravity, Urine 1.005 (1.002-1.036); Squamous Epithelial 0-3 HPF (0-3); Urobilinogen Normal mg/dL (Less than 2); WBC/HPF 0-3 HPF (0-3)
[2023-02-06 23:45] LABS: Urine Culture Reflex No No
[2023-02-07] MEDS: Piperacillin/Tazobactam 3.375 GM in Sodium Chloride 0.9% 100 ML IVPB SCH ×3 (04:45→23:07)
[2023-02-07] MEDS: Hydrocortisone Sod Succ/PF 100 mg/2 ml Vial IVP SCH (04:45)
[2023-02-07] MEDS: Levothyroxine Sodium 125 MCG TAB PO SCH (04:51)
[2023-02-07 05:26] LABS: #Monocytes 0.7 thou/uL (0.11-0.59); #Neutrophils 6.9 thou/uL (1.40-6.50); %Basophils 0.2 % (0.0-1.0); %Eosinophils 0.4 % (0.0-10.0); %Lymphocytes 8.4 % (21.0-51.0); %Monocytes 7.9 % (0.0-10.0); %Neutrophils 82.9 % (42.0-75.0); Hematocrit 33.5 % (42.0-52.0); Hemoglobin 10.4 g/dL (14.0-18.0); Mean Corpuscular Hemoglobin 32.8 pg (27.0-31.0); Mean Platelet Volume 11.1 fL (7.4-10.4); Platelet Count 172 10x3/uL (130-400); RBC Distribution Width 16.3 % (11.5-14.5); Red Blood Cell (RBC) Count 3.17 mill/uL (4.70-6.10); White Blood Cell (WBC) Count 8.3 10x3/uL (4.8-10.8)
[2023-02-07 05:33] LABS: Hemoglobin 10.2 g/dL (14.0-18.0)
[2023-02-07] MEDS ORDERED: Sevoflurane 250 ML INH ANEST BOTTLE ONE (05:36)
[2023-02-07 06:30] LABS: Anion Gap 16 mmol/L (10-20); BUN (Urea Nitrogen) 75 mg/dL (8.4-25.7); Calc. Creatinine Clearance 40 mL/min (70-130); Calcium 8.4 mg/dL (7.8-10.44); Carbon Dioxide 22 mmol/L (23-31); Chloride 117 mmol/L (98-107); Estimated GFR 48; Glucose 81 mg/dL (83-110); Magnesium 2.2 mg/dL (1.6-2.6); Mean Corpuscular Volume 105.7 fl (78.0-98.0); Phosphorus 4.2 mg/dL (2.3-4.7); Potassium 4.5 mmol/L (3.5-5.1); Sodium 150 mmol/L (136-145)
[2023-02-07] MEDS: Ipratropium/Albuterol 3 ML NEB NEB SCH ×4 (07:06→19:31)
[2023-02-07] MEDS ORDERED: Sodium Bicarbonate 150 MEQ in Dextrose 5% in Water 1,000 ML IV SCH (07:30)
[2023-02-07] MEDS ORDERED: Bupivacaine 0.25% HCL 30 ML VIAL ONE (09:05)
[2023-02-07] MEDS ORDERED: EPINEPHrine 1 MG/ML VIAL ONE (09:05)
[2023-02-07] MEDS ORDERED: PROPOFOL 20 ML ONE (09:13)
[2023-02-07] MEDS ORDERED: fentaNYL 50 mcg/mL 1 mL Vial ONE (09:13)
[2023-02-07] MEDS ORDERED: SUGAMMADEX SODIUM 200 MG/2 ML VIAL ONE (09:13)
[2023-02-07] MEDS ORDERED: Dexamethasone 4 mg/ml Vial ONE (09:15)
[2023-02-07] MEDS ORDERED: PHENYLEPHRINE-NS 100 MCG/ML 10 ML SYRINGE ONE (09:15)
[2023-02-07] MEDS ORDERED: Rocuronium Bromide 10 MG/ML (10ML VIAL) ONE (09:15)
[2023-02-07] MEDS ORDERED: Ondansetron PF 4 MG/2 ML Vial ONE (09:15)
[2023-02-07] MEDS ORDERED: Ketamine In 0.9 % NaCl 50 MG/5 ML SYRINGE ONE (10:10)
[2023-02-07] MEDS ORDERED: Glycopyrrolate 0.2 MG/ML 5 ML SYRINGE ONE (10:10)
[2023-02-07] MEDS ORDERED: Polyethylene Glycol 3350 17 GM Packet PER TUBE PRN (15:15)
[2023-02-07] MEDS ORDERED: Senokot 8.6 MG TAB PER TUBE PRN (15:30)
[2023-02-07 16:56] LABS: Anion Gap 15 mmol/L (10-20); BUN (Urea Nitrogen) 65 mg/dL (8.4-25.7); Calc. Creatinine Clearance 38 mL/min (70-130); Calcium 8.3 mg/dL (7.8-10.44); Carbon Dioxide 24 mmol/L (23-31); Chloride 115 mmol/L (98-107); Estimated GFR 46; Glucose 82 mg/dL (83-110); Potassium 4.2 mmol/L (3.5-5.1); Sodium 150 mmol/L (136-145)
[2023-02-07] MEDS: DRY MOUTH SPRAY PO SCH ×3 (18:41→23:08)
[2023-02-07] MEDS ORDERED: levETIRAcetam 500 MG TAB PO SCH (21:00)
[2023-02-07] MEDS ORDERED: Carvedilol 6.25 MG TAB PO SCH (21:15)
[2023-02-07] MEDS: levETIRAcetam 500 mg/5 ml Oral Solution PER TUBE SCH (23:05)
[2023-02-07] MEDS: Lacosamide 50 mg Tablet PER TUBE SCH (23:06)
[2023-02-07] MEDS: Amantadine HCl 10 mg/ml Oral Solution PER TUBE SCH (23:06)
[2023-02-07] MEDS: Donepezil HCl 5 MG TAB PER TUBE SCH (23:07)
[2023-02-08 05:21] LABS: #Eosinphils 0.2 thou/uL (0.0-0.7); #Monocytes 0.5 thou/uL (0.11-0.59); #Neutrophils 4.2 thou/uL (1.40-6.50); %Basophils 0.2 % (0.0-1.0); %Eosinophils 2.7 % (0.0-10.0); %Lymphocytes 13.8 % (21.0-51.0); %Monocytes 8.8 % (0.0-10.0); Hematocrit 32.2 % (42.0-52.0); Hemoglobin 10.1 g/dL (14.0-18.0); Mean Corpuscular HGB CONC 31.4 g/dL (32.0-36.0); Mean Corpuscular Volume 105.2 fl (78.0-98.0); Mean Platelet Volume 10.9 fL (7.4-10.4); Platelet Count 160 10x3/uL (130-400); RBC Distribution Width 16.2 % (11.5-14.5); Red Blood Cell (RBC) Count 3.06 mill/uL (4.70-6.10); White Blood Cell (WBC) Count 5.6 10x3/uL (4.8-10.8)
[2023-02-08] MEDS: Levothyroxine Sodium 125 MCG TAB PER TUBE SCH (05:24)
[2023-02-08] MEDS: Piperacillin/Tazobactam 3.375 GM in Sodium Chloride 0.9% 100 ML IVPB SCH (05:25)
[2023-02-08 05:48] LABS: Anion Gap 14 mmol/L (10-20); BUN (Urea Nitrogen) 68 mg/dL (8.4-25.7); Calc. Creatinine Clearance 40 mL/min (70-130); Calcium 8.3 mg/dL (7.8-10.44); Carbon Dioxide 25 mmol/L (23-31); Chloride 116 mmol/L (98-107); Estimated GFR 48; Glucose 71 mg/dL (83-110); Potassium 3.8 mmol/L (3.5-5.1)
[2023-02-08 05:54] LABS: Sodium 151 mmol/L (136-145)
[2023-02-08] MEDS: Ipratropium/Albuterol 3 ML NEB NEB SCH ×3 (07:24→18:58)
[2023-02-08] MEDS: Lacosamide 50 mg Tablet PER TUBE SCH ×2 (09:39→21:40)
[2023-02-08] MEDS: levETIRAcetam 500 mg/5 ml Oral Solution PER TUBE SCH ×2 (09:40→21:39)
[2023-02-08] MEDS: Carvedilol 6.25 MG TAB PO SCH ×2 (09:41→16:42)
[2023-02-08] MEDS: Atorvastatin Calcium 10 MG TAB PER TUBE SCH (09:41)
[2023-02-08] MEDS: DRY MOUTH SPRAY PO SCH ×5 (09:42→21:48)
[2023-02-08] MEDS: Amantadine HCl 10 mg/ml Oral Solution PER TUBE SCH ×2 (09:42→21:40)
[2023-02-08] MEDS: Silodosin 4 MG CAP FS SCH (10:15)
[2023-02-08] MEDS: Amantadine HCl 100 mg Capsule PO SCH (11:01)
[2023-02-08] MEDS: Lacosamide 200 MG in Sodium Chloride 0.9% 50 ML IVPB SCH (11:01)
[2023-02-08] MEDS: Atorvastatin Calcium 10 MG TAB PO SCH (11:01)
[2023-02-08] MEDS: Hydrocortisone Sod Succ/PF 100 mg/2 ml Vial IVP SCH (11:02)
[2023-02-08] MEDS: Tamsulosin HCl 0.4 MG CAP PO SCH (11:02)
[2023-02-08] MEDS: levETIRAcetam 500 MG/5 ML VIAL SLOW IVP SCH (11:02)
[2023-02-08] MEDS: Piperacillin/Tazobactam 3.375 GM in Dextrose 5% in Water 100 ML IVPB SCH ×2 (11:50→21:50)
[2023-02-08 12:49] VITALS: BMI 25.4
[2023-02-08] MEDS: Donepezil HCl 5 MG TAB PER TUBE SCH (21:40)
[2023-02-09] MEDS: DRY MOUTH SPRAY PO SCH ×6 (00:05→22:58)
[2023-02-09] MEDS: Piperacillin/Tazobactam 3.375 GM in Dextrose 5% in Water 100 ML IVPB SCH ×3 (05:44→20:43)
[2023-02-09 06:26] LABS: #Eosinphils 0.1 thou/uL (0.0-0.7); #Monocytes 0.4 thou/uL (0.11-0.59); #Neutrophils 3.5 thou/uL (1.40-6.50); %Basophils 0.4 % (0.0-1.0); %Eosinophils 2.9 % (0.0-10.0); %Lymphocytes 17.1 % (21.0-51.0); %Monocytes 7.9 % (0.0-10.0); %Neutrophils 71.5 % (42.0-75.0); Hematocrit 32.7 % (42.0-52.0); Hemoglobin 10.1 g/dL (14.0-18.0); Mean Corpuscular HGB CONC 30.9 g/dL (32.0-36.0); Mean Corpuscular Hemoglobin 32.8 pg (27.0-31.0); Mean Corpuscular Volume 106.2 fl (78.0-98.0); Mean Platelet Volume 11.7 fL (7.4-10.4); Platelet Count 118 10x3/uL (130-400); RBC Distribution Width 16.2 % (11.5-14.5); Red Blood Cell (RBC) Count 3.08 mill/uL (4.70-6.10); White Blood Cell (WBC) Count 4.9 10x3/uL (4.8-10.8)
[2023-02-09] MEDS: Levothyroxine Sodium 125 MCG TAB PER TUBE SCH (06:29)
[2023-02-09 06:52] LABS: Anion Gap 13 mmol/L (10-20); BUN (Urea Nitrogen) 62 mg/dL (8.4-25.7); Calc. Creatinine Clearance 35 mL/min (70-130); Calcium 8.1 mg/dL (7.8-10.44); Carbon Dioxide 24 mmol/L (23-31); Chloride 117 mmol/L (98-107); Estimated GFR 42; Glucose 186 mg/dL (83-110); Phosphorus 3.1 mg/dL (2.3-4.7); Potassium 4.3 mmol/L (3.5-5.1); Sodium 150 mmol/L (136-145)
[2023-02-09] MEDS: Ipratropium/Albuterol 3 ML NEB NEB SCH ×3 (07:14→18:46)
[2023-02-09] MEDS: Amantadine HCl 10 mg/ml Oral Solution PER TUBE SCH ×2 (09:13→20:27)
[2023-02-09] MEDS: levETIRAcetam 500 mg/5 ml Oral Solution PER TUBE SCH ×2 (09:14→20:26)
[2023-02-09] MEDS: Atorvastatin Calcium 10 MG TAB PER TUBE SCH (09:14)
[2023-02-09] MEDS: Carvedilol 6.25 MG TAB PO SCH ×2 (09:14→17:04)
[2023-02-09] MEDS: Lacosamide 50 mg Tablet PER TUBE SCH ×2 (09:15→20:26)
[2023-02-09] MEDS: Silodosin 4 MG CAP FS SCH (09:15)
[2023-02-09] MEDS ORDERED: Sodium Bicarbonate 150 MEQ in Dextrose 5% in Water 1,000 ML IV SCH (12:00)
[2023-02-09] MEDS: Scopolamine 1 mg/72 hour Patch TD SCH (13:39)
[2023-02-09] MEDS: Donepezil HCl 5 MG TAB PER TUBE SCH (20:26)
[2023-02-10] MEDS: Piperacillin/Tazobactam 3.375 GM in Dextrose 5% in Water 100 ML IVPB SCH ×3 (02:46→21:18)
[2023-02-10] MEDS: Levothyroxine Sodium 125 MCG TAB PER TUBE SCH (05:53)
[2023-02-10 06:55] LABS: Anion Gap 13 mmol/L (10-20); BUN (Urea Nitrogen) 54 mg/dL (8.4-25.7); Calc. Creatinine Clearance 40 mL/min (70-130); Calcium 7.9 mg/dL (7.8-10.44); Carbon Dioxide 26 mmol/L (23-31); Chloride 113 mmol/L (98-107); Estimated GFR 48; Glucose 172 mg/dL (83-110); Magnesium 1.9 mg/dL (1.6-2.6); Phosphorus 2.6 mg/dL (2.3-4.7); Potassium 4.8 mmol/L (3.5-5.1); Sodium 147 mmol/L (136-145)
[2023-02-10] MEDS: Ipratropium/Albuterol 3 ML NEB NEB SCH ×3 (07:59→19:51)
[2023-02-10] MEDS: levETIRAcetam 500 mg/5 ml Oral Solution PER TUBE SCH ×2 (08:58→21:15)
[2023-02-10] MEDS: Atorvastatin Calcium 10 MG TAB PER TUBE SCH (08:58)
[2023-02-10] MEDS: Lacosamide 50 mg Tablet PER TUBE SCH ×2 (08:58→21:18)
[2023-02-10] MEDS: Carvedilol 6.25 MG TAB PO SCH ×2 (08:58→16:19)
[2023-02-10] MEDS: DRY MOUTH SPRAY PO SCH ×4 (09:05→21:19)
[2023-02-10] MEDS: Silodosin 4 MG CAP FS SCH (09:09)
[2023-02-10] MEDS: Amantadine HCl 10 mg/ml Oral Solution PER TUBE SCH ×2 (09:09→21:18)
[2023-02-10] MEDS: Donepezil HCl 5 MG TAB PER TUBE SCH (21:18)
[2023-02-11] MEDS: DRY MOUTH SPRAY PO SCH ×6 (00:25→23:57)
[2023-02-11] MEDS: Piperacillin/Tazobactam 3.375 GM in Dextrose 5% in Water 100 ML IVPB SCH ×3 (04:59→20:46)
[2023-02-11] MEDS ORDERED: Sodium Chloride 0.9% 1,000 ML IV SCH (05:00)
[2023-02-11] MEDS: Levothyroxine Sodium 125 MCG TAB PER TUBE SCH (05:00)
[2023-02-11 05:11] LABS: #Eosinphils 0.1 thou/uL (0.0-0.7); #Neutrophils 6.8 thou/uL (1.40-6.50); %Basophils 0.1 % (0.0-1.0); %Eosinophils 1.4 % (0.0-10.0); %Lymphocytes 6.9 % (21.0-51.0); %Monocytes 11.6 % (0.0-10.0); %Neutrophils 79.5 % (42.0-75.0); Hemoglobin 8.3 g/dL (14.0-18.0); Mean Corpuscular HGB CONC 31.9 g/dL (32.0-36.0); Mean Corpuscular Hemoglobin 33.2 pg (27.0-31.0); Mean Platelet Volume 11.1 fL (7.4-10.4); Platelet Count 156 10x3/uL (130-400); RBC Distribution Width 16.2 % (11.5-14.5); White Blood Cell (WBC) Count 8.5 10x3/uL (4.8-10.8)
[2023-02-11 05:37] LABS: ALT (SGPT) 15 U/L (8-55); AST (SGOT) 25 U/L (5-34); Albumin 2.1 g/dL (3.4-4.8); Alkaline Phosphatase 56 U/L (40-110); Anion Gap 11 mmol/L (10-20); BUN (Urea Nitrogen) 60 mg/dL (8.4-25.7); Bilirubin, Total 0.4 mg/dL (0.2-1.2); Calc. Creatinine Clearance 35 mL/min (70-130); Calcium 8.2 mg/dL (7.8-10.44); Carbon Dioxide 28 mmol/L (23-31); Chloride 114 mmol/L (98-107); Estimated GFR 41; Globulin 2.5 g/dL (2.4-3.5); Glucose 158 mg/dL (83-110); Potassium 4.1 mmol/L (3.5-5.1); Protein, Total 4.6 g/dL (5.8-8.1); Sodium 149 mmol/L (136-145)
[2023-02-11] MEDS: Ipratropium/Albuterol 3 ML NEB NEB SCH ×3 (07:20→18:42)
[2023-02-11] MEDS: Silodosin 4 MG CAP FS SCH (10:59)
[2023-02-11] MEDS: Atorvastatin Calcium 10 MG TAB PER TUBE SCH (10:59)
[2023-02-11] MEDS: levETIRAcetam 500 mg/5 ml Oral Solution PER TUBE SCH ×2 (10:59→20:54)
[2023-02-11] MEDS: Amantadine HCl 10 mg/ml Oral Solution PER TUBE SCH ×2 (11:00→20:53)
[2023-02-11] MEDS: Lacosamide 50 mg Tablet PER TUBE SCH ×2 (11:00→20:53)
[2023-02-11] MEDS: Carvedilol 6.25 MG TAB PO SCH ×2 (11:03→18:16)
[2023-02-11 13:52] LABS: Hematocrit 25.3 % (42.0-52.0); Hemoglobin 7.8 g/dL (14.0-18.0); Platelet Count 151 10x3/uL (130-400)
[2023-02-11 14:20] LABS: ALT (SGPT) 16 U/L (8-55); AST (SGOT) 26 U/L (5-34); Alkaline Phosphatase 52 U/L (40-110); Anion Gap 11 mmol/L (10-20); BUN (Urea Nitrogen) 60 mg/dL (8.4-25.7); Bilirubin, Total 0.4 mg/dL (0.2-1.2); Calc. Creatinine Clearance 33 mL/min (70-130); Carbon Dioxide 29 mmol/L (23-31); Chloride 113 mmol/L (98-107); Estimated GFR 39; Globulin 2.5 g/dL (2.4-3.5); Glucose 128 mg/dL (83-110); Potassium 3.9 mmol/L (3.5-5.1); Protein, Total 4.5 g/dL (5.8-8.1); Sodium 149 mmol/L (136-145)
[2023-02-11] MEDS: Donepezil HCl 5 MG TAB PER TUBE SCH (20:53)
[2023-02-12] MEDS: Levothyroxine Sodium 125 MCG TAB PER TUBE SCH (05:04)
[2023-02-12] MEDS: Piperacillin/Tazobactam 3.375 GM in Dextrose 5% in Water 100 ML IVPB SCH ×3 (05:04→22:32)
[2023-02-12] MEDS: Ipratropium/Albuterol 3 ML NEB NEB SCH ×3 (08:04→18:55)
[2023-02-12] MEDS: DRY MOUTH SPRAY PO SCH ×4 (08:15→22:32)
[2023-02-12] MEDS: Atorvastatin Calcium 10 MG TAB PER TUBE SCH (10:20)
[2023-02-12] MEDS: Lacosamide 50 mg Tablet PER TUBE SCH ×2 (10:21→22:32)
[2023-02-12] MEDS: levETIRAcetam 500 mg/5 ml Oral Solution PER TUBE SCH ×2 (10:21→22:31)
[2023-02-12] MEDS: Silodosin 4 MG CAP FS SCH (10:21)
[2023-02-12] MEDS: Amantadine HCl 10 mg/ml Oral Solution PER TUBE SCH ×2 (10:21→22:32)
[2023-02-12] MEDS: Carvedilol 6.25 MG TAB PO SCH ×2 (10:22→18:22)
[2023-02-12] MEDS: Scopolamine 1 mg/72 hour Patch TD SCH (15:00)
[2023-02-12] MEDS ORDERED: Midodrine HCl 5 MG TAB PO SCH (16:30)
[2023-02-12] MEDS: Donepezil HCl 5 MG TAB PER TUBE SCH (22:31)
[2023-02-13] MEDS: DRY MOUTH SPRAY PO SCH ×6 (01:00→23:07)
[2023-02-13] MEDS: Piperacillin/Tazobactam 3.375 GM in Dextrose 5% in Water 100 ML IVPB SCH ×3 (03:07→21:05)
[2023-02-13] MEDS: Levothyroxine Sodium 125 MCG TAB PER TUBE SCH (06:26)
[2023-02-13] MEDS: Ipratropium/Albuterol 3 ML NEB NEB SCH ×3 (07:28→19:39)
[2023-02-13 08:17] LABS: #Eosinphils 0.3 thou/uL (0.0-0.7); #Monocytes 0.6 thou/uL (0.11-0.59); #Neutrophils 6.5 thou/uL (1.40-6.50); %Basophils 0.1 % (0.0-1.0); %Eosinophils 3.6 % (0.0-10.0); %Lymphocytes 10.3 % (21.0-51.0); %Monocytes 7.5 % (0.0-10.0); %Neutrophils 77.9 % (42.0-75.0); Hematocrit 20.3 % (42.0-52.0); Hemoglobin 6.2 g/dL (14.0-18.0); Mean Corpuscular HGB CONC 30.5 g/dL (32.0-36.0); Mean Corpuscular Hemoglobin 32.8 pg (27.0-31.0); Mean Corpuscular Volume 107.4 fl (78.0-98.0); Mean Platelet Volume 11.8 fL (7.4-10.4); Platelet Count 135 10x3/uL (130-400); RBC Distribution Width 16.8 % (11.5-14.5); Red Blood Cell (RBC) Count 1.89 mill/uL (4.70-6.10); White Blood Cell (WBC) Count 8.4 10x3/uL (4.8-10.8)
[2023-02-13 08:35] LABS: ALT (SGPT) 32 U/L (8-55); AST (SGOT) 37 U/L (5-34); Albumin 1.9 g/dL (3.4-4.8); Alkaline Phosphatase 56 U/L (40-110); Anion Gap 12 mmol/L (10-20); BUN (Urea Nitrogen) 68 mg/dL (8.4-25.7); Bilirubin, Total 0.2 mg/dL (0.2-1.2); Calc. Creatinine Clearance 31 mL/min (70-130); Calcium 7.9 mg/dL (7.8-10.44); Carbon Dioxide 25 mmol/L (23-31); Chloride 113 mmol/L (98-107); Estimated GFR 36; Globulin 2.5 g/dL (2.4-3.5); Glucose 144 mg/dL (83-110); Potassium 3.6 mmol/L (3.5-5.1); Protein, Total 4.4 g/dL (5.8-8.1); Sodium 146 mmol/L (136-145)
[2023-02-13] MEDS: Lacosamide 50 mg Tablet PER TUBE SCH ×2 (08:40→21:05)
[2023-02-13] MEDS: Silodosin 4 MG CAP FS SCH (08:40)
[2023-02-13] MEDS: Atorvastatin Calcium 10 MG TAB PER TUBE SCH (08:40)
[2023-02-13] MEDS: levETIRAcetam 500 mg/5 ml Oral Solution PER TUBE SCH ×2 (08:40→21:05)
[2023-02-13] MEDS: Amantadine HCl 10 mg/ml Oral Solution PER TUBE SCH ×2 (08:41→21:05)
[2023-02-13] MEDS: Carvedilol 6.25 MG TAB PO SCH ×2 (08:41→17:42)
[2023-02-13] MEDS: Midodrine HCl 5 MG TAB PO SCH ×3 (08:41→21:05)
[2023-02-13] MEDS: Donepezil HCl 5 MG TAB PER TUBE SCH (21:05)
[2023-02-14] MEDS: Levothyroxine Sodium 125 MCG TAB PER TUBE SCH (06:06)
[2023-02-14] MEDS: Ipratropium/Albuterol 3 ML NEB NEB SCH ×3 (07:25→20:51)
[2023-02-14 08:03] LABS: #Eosinphils 0.2 thou/uL (0.0-0.7); #Monocytes 0.6 thou/uL (0.11-0.59); #Neutrophils 5.6 thou/uL (1.40-6.50); %Eosinophils 2.8 % (0.0-10.0); %Lymphocytes 10.5 % (21.0-51.0); %Monocytes 8.4 % (0.0-10.0); %Neutrophils 77.3 % (42.0-75.0); Hematocrit 18.5 % (42.0-52.0); Hemoglobin 5.8 g/dL (14.0-18.0); Mean Corpuscular HGB CONC 31.4 g/dL (32.0-36.0); Mean Corpuscular Hemoglobin 33.7 pg (27.0-31.0); Mean Corpuscular Volume 107.6 fl (78.0-98.0); Mean Platelet Volume 12.1 fL (7.4-10.4); Platelet Count 160 10x3/uL (130-400); RBC Distribution Width 17.2 % (11.5-14.5); Red Blood Cell (RBC) Count 1.72 mill/uL (4.70-6.10); White Blood Cell (WBC) Count 7.3 10x3/uL (4.8-10.8)
[2023-02-14 08:32] LABS: ALT (SGPT) 26 U/L (8-55); AST (SGOT) 24 U/L (5-34); Albumin 1.9 g/dL (3.4-4.8); Alkaline Phosphatase 55 U/L (40-110); Anion Gap 13 mmol/L (10-20); BUN (Urea Nitrogen) 69 mg/dL (8.4-25.7); Bilirubin, Total 0.3 mg/dL (0.2-1.2); Calc. Creatinine Clearance 30 mL/min (70-130); Calcium 8.2 mg/dL (7.8-10.44); Carbon Dioxide 27 mmol/L (23-31); Chloride 111 mmol/L (98-107); Estimated GFR 34; Globulin 2.8 g/dL (2.4-3.5); Glucose 100 mg/dL (83-110); Potassium 4.1 mmol/L (3.5-5.1); Protein, Total 4.7 g/dL (5.8-8.1); Sodium 147 mmol/L (136-145)
[2023-02-14] MEDS: Pantoprazole 40 MG VIAL IVP SCH ×2 (09:57→20:16)
[2023-02-14] MEDS: Lacosamide 50 mg Tablet PER TUBE SCH ×2 (09:57→20:15)
[2023-02-14] MEDS: levETIRAcetam 500 mg/5 ml Oral Solution PER TUBE SCH ×2 (09:57→20:16)
[2023-02-14] MEDS: Amantadine HCl 10 mg/ml Oral Solution PER TUBE SCH ×2 (09:58→20:15)
[2023-02-14] MEDS: DRY MOUTH SPRAY PO SCH ×5 (09:58→23:22)
[2023-02-14] MEDS: Midodrine HCl 5 MG TAB PO SCH ×3 (09:58→20:15)
[2023-02-14] MEDS: Silodosin 4 MG CAP FS SCH (09:58)
[2023-02-14] MEDS: Carvedilol 6.25 MG TAB PO SCH ×2 (09:58→17:34)
[2023-02-14] MEDS: Atorvastatin Calcium 10 MG TAB PER TUBE SCH (09:58)
[2023-02-14] MEDS: Donepezil HCl 5 MG TAB PER TUBE SCH (20:16)
[2023-02-14 22:32] LABS: Hematocrit 24.4 % (42.0-52.0); Hemoglobin 8.1 g/dL (14.0-18.0)
[2023-02-15] MEDS ORDERED: Furosemide 20 MG/2 ML VIAL SLOW IVP SCH (03:15)
[2023-02-15] MEDS: Morphine 4 MG/ML VIAL SLOW IVP SCH ×2 (03:19→09:45)
[2023-02-15 06:17] LABS: ALT (SGPT) 19 U/L (8-55); AST (SGOT) 18 U/L (5-34); Alkaline Phosphatase 63 U/L (40-110); Anion Gap 14 mmol/L (10-20); BUN (Urea Nitrogen) 68 mg/dL (8.4-25.7); Bilirubin, Total 0.3 mg/dL (0.2-1.2); Calc. Creatinine Clearance 31 mL/min (70-130); Calcium 7.9 mg/dL (7.8-10.44); Carbon Dioxide 25 mmol/L (23-31); Chloride 112 mmol/L (98-107); Estimated GFR 36; Globulin 2.7 g/dL (2.4-3.5); Glucose 130 mg/dL (83-110); Potassium 4.5 mmol/L (3.5-5.1); Protein, Total 4.7 g/dL (5.8-8.1); Sodium 146 mmol/L (136-145)
[2023-02-15 07:12] LABS: #Eosinphils 0.2 thou/uL (0.0-0.7); #Monocytes 0.6 thou/uL (0.11-0.59); #Neutrophils 5.6 thou/uL (1.40-6.50); %Basophils 0.3 % (0.0-1.0); %Eosinophils 2.8 % (0.0-10.0); %Lymphocytes 8.7 % (21.0-51.0); %Monocytes 8.3 % (0.0-10.0); %Neutrophils 79.3 % (42.0-75.0); Hematocrit 24.6 % (42.0-52.0); Mean Corpuscular HGB CONC 32.5 g/dL (32.0-36.0); Mean Corpuscular Hemoglobin 30.7 pg (27.0-31.0); Mean Platelet Volume 11.7 fL (7.4-10.4); Platelet Count 155 10x3/uL (130-400); RBC Distribution Width 23.8 % (11.5-14.5); Red Blood Cell (RBC) Count 2.61 mill/uL (4.70-6.10); White Blood Cell (WBC) Count 7.1 10x3/uL (4.8-10.8)
[2023-02-15 07:16] LABS: Mean Corpuscular Volume 94.3 fl (78.0-98.0)
[2023-02-15] MEDS: Ipratropium/Albuterol 3 ML NEB NEB SCH ×3 (07:23→18:29)
[2023-02-15] MEDS: Atorvastatin Calcium 10 MG TAB PER TUBE SCH (09:43)
[2023-02-15] MEDS: Carvedilol 6.25 MG TAB PO SCH (09:43)
[2023-02-15] MEDS: Amantadine HCl 10 mg/ml Oral Solution PER TUBE SCH ×2 (09:43→22:32)
[2023-02-15] MEDS: Midodrine HCl 5 MG TAB PO SCH ×3 (09:43→22:33)
[2023-02-15] MEDS: levETIRAcetam 500 mg/5 ml Oral Solution PER TUBE SCH ×2 (09:43→22:32)
[2023-02-15] MEDS: Pantoprazole 40 MG VIAL IVP SCH ×2 (09:45→22:32)
[2023-02-15] MEDS: Silodosin 4 MG CAP FS SCH (09:45)
[2023-02-15] MEDS: Levothyroxine Sodium 125 MCG TAB PER TUBE SCH (09:45)
[2023-02-15] MEDS: Lacosamide 50 mg Tablet PER TUBE SCH ×2 (09:45→22:49)
[2023-02-15] MEDS: DRY MOUTH SPRAY PO SCH ×4 (09:45→22:50)
[2023-02-15 09:46] VITALS: BP 93/59
[2023-02-15] MEDS ORDERED: Albumin 25% 25 GM/100 ML BOT IVPB SCH (13:00)
[2023-02-15] MEDS: Scopolamine 1 mg/72 hour Patch TD SCH (13:08)
[2023-02-15] MEDS: Donepezil HCl 5 MG TAB PER TUBE SCH (22:33)
[2023-02-15] MEDS: Albumin 25% 25 GM/100 ML BOT IVPB SCH (23:19)
[2023-02-16] MEDS: DRY MOUTH SPRAY PO SCH ×3 (00:21→13:28)
[2023-02-16 04:38] LABS: #Eosinphils 0.2 thou/uL (0.0-0.7); #Monocytes 0.7 thou/uL (0.11-0.59); #Neutrophils 5.2 thou/uL (1.40-6.50); %Basophils 0.1 % (0.0-1.0); %Eosinophils 2.6 % (0.0-10.0); %Lymphocytes 11.2 % (21.0-51.0); %Monocytes 9.6 % (0.0-10.0); %Neutrophils 75.8 % (42.0-75.0); Hematocrit 22.6 % (42.0-52.0); Hemoglobin 6.9 g/dL (14.0-18.0); Mean Corpuscular HGB CONC 30.5 g/dL (32.0-36.0); Mean Corpuscular Hemoglobin 30.7 pg (27.0-31.0); Mean Platelet Volume 11.1 fL (7.4-10.4); Platelet Count 132 10x3/uL (130-400); RBC Distribution Width 23.5 % (11.5-14.5); Red Blood Cell (RBC) Count 2.25 mill/uL (4.70-6.10); White Blood Cell (WBC) Count 6.9 10x3/uL (4.8-10.8)
[2023-02-16 04:51] LABS: Mean Corpuscular Volume 100.4 fl (78.0-98.0)
[2023-02-16 05:09] LABS: Anion Gap 12 mmol/L (10-20); BUN (Urea Nitrogen) 73 mg/dL (8.4-25.7); Calc. Creatinine Clearance 28 mL/min (70-130); Calcium 8.1 mg/dL (7.8-10.44); Carbon Dioxide 31 mmol/L (23-31); Chloride 111 mmol/L (98-107); Estimated GFR 32; Glucose 79 mg/dL (83-110); Potassium 4.7 mmol/L (3.5-5.1); Sodium 149 mmol/L (136-145)
[2023-02-16] MEDS: Levothyroxine Sodium 125 MCG TAB PER TUBE SCH (06:44)
[2023-02-16] MEDS: Albumin 25% 25 GM/100 ML BOT IVPB SCH ×2 (06:44→11:09)
[2023-02-16] MEDS: Ipratropium/Albuterol 3 ML NEB NEB SCH ×2 (07:57→12:29)
[2023-02-16] MEDS: Atorvastatin Calcium 10 MG TAB PER TUBE SCH (08:28)
[2023-02-16] MEDS: Silodosin 4 MG CAP FS SCH (08:28)
[2023-02-16] MEDS: Midodrine HCl 5 MG TAB PO SCH (08:29)
[2023-02-16] MEDS: Pantoprazole 40 MG VIAL IVP SCH (08:29)
[2023-02-16] MEDS: Amantadine HCl 10 mg/ml Oral Solution PER TUBE SCH (08:29)
[2023-02-16] MEDS: levETIRAcetam 500 mg/5 ml Oral Solution PER TUBE SCH (08:29)
[2023-02-16] MEDS: Lacosamide 50 mg Tablet PER TUBE SCH (11:08)
[2023-02-16 12:09] VITALS: TEMP 97.7
== END 2023-02-16 17:10 | disposition expired | DRG 23 ==
LOC: ERS 18:14 → SDC/OP 20:50 → CCU 23:10 → SJJU 02-01 19:58 → SURG A 02-06 19:39 → IMCU/EMU 02-15 05:39
PROVIDERS: ADMIT Surgery; ATTEND Surgery
PROC: 009430Z Drainage of Intracranial Subdural Space with Drainage Device, Percutaneous Approach (ICD-10-PCS; principal; 2023-01-19)
PROC: 30283B1 Transfusion of Nonautologous 4-Factor Prothrombin Complex Concentrate into Vein, Percutaneous Approach (ICD-10-PCS; 2023-01-19)
PROC: 30233K1 Transfusion of Nonautologous Frozen Plasma into Peripheral Vein, Percutaneous Approach (ICD-10-PCS; 2023-01-20)
PROC: 5A1955Z Respiratory Ventilation, Greater than 96 Consecutive Hours (ICD-10-PCS; 2023-01-22)
PROC: 0BH17EZ Insertion of Endotracheal Airway into Trachea, Via Natural or Artificial Opening (ICD-10-PCS; 2023-01-22)
PROC: 4A133R1 Monitoring of Arterial Saturation, Peripheral, Percutaneous Approach (ICD-10-PCS; 2023-01-22)
PROC: 4A10X4Z Monitoring of Central Nervous Electrical Activity, External Approach (ICD-10-PCS; 2023-01-23)
PROC: 4A10X4Z Monitoring of Central Nervous Electrical Activity, External Approach (ICD-10-PCS; 2023-01-24)
PROC: 30233N1 Transfusion of Nonautologous Red Blood Cells into Peripheral Vein, Percutaneous Approach (ICD-10-PCS; 2023-01-24)
PROC: 4A10X4Z Monitoring of Central Nervous Electrical Activity, External Approach (ICD-10-PCS; 2023-01-25)
PROC: 4A10X4Z Monitoring of Central Nervous Electrical Activity, External Approach (ICD-10-PCS; 2023-01-26)
PROC: 0B9J8ZX Drainage of Left Lower Lung Lobe, Via Natural or Artificial Opening Endoscopic, Diagnostic (ICD-10-PCS; 2023-01-26)
PROC: 0B9F8ZX Drainage of Right Lower Lung Lobe, Via Natural or Artificial Opening Endoscopic, Diagnostic (ICD-10-PCS; 2023-01-26)
PROC: 4A10X4Z Monitoring of Central Nervous Electrical Activity, External Approach (ICD-10-PCS; 2023-01-28)
PROC: 0DJ08ZZ Inspection of Upper Intestinal Tract, Via Natural or Artificial Opening Endoscopic (ICD-10-PCS; 2023-01-28)
PROC: 4A10X4Z Monitoring of Central Nervous Electrical Activity, External Approach (ICD-10-PCS; 2023-02-07)
PROC: 0DH63UZ Insertion of Feeding Device into Stomach, Percutaneous Approach (ICD-10-PCS; 2023-02-07)
PROC: 30233J1 Transfusion of Nonautologous Serum Albumin into Peripheral Vein, Percutaneous Approach (ICD-10-PCS; 2023-02-15)
DX: S06.6XAA Traumatic subarachnoid hemorrhage with loss of consciousness status unknown, initial encounter (principal); G93.41 Metabolic encephalopathy; J96.01 Acute respiratory failure with hypoxia; J69.0 Pneumonitis due to inhalation of food and vomit; S22.42XA Multiple fractures of ribs, left side, initial encounter for closed fracture; N17.9 Acute kidney failure, unspecified; Z66 Do not resuscitate; Z51.5 Encounter for palliative care; Q61.3 Polycystic kidney, unspecified; J98.11 Atelectasis; G40.802 Other epilepsy, not intractable, without status epilepticus; J90 Pleural effusion, not elsewhere classified; E87.0 Hyperosmolality and hypernatremia; G72.81 Critical illness myopathy; S06.5XAA Traumatic subdural hemorrhage with loss of consciousness status unknown, initial encounter; I12.9 Hypertensive chronic kidney disease with stage 1 through stage 4 chronic kidney disease, or unspecified chronic kidney disease; D64.9 Anemia, unspecified; N18.30 Chronic kidney disease, stage 3 unspecified; S06.1XAA Traumatic cerebral edema with loss of consciousness status unknown, initial encounter; R13.10 Dysphagia, unspecified; Z86.718 Personal history of other venous thrombosis and embolism; Z86.73 Personal history of transient ischemic attack (TIA), and cerebral infarction without residual deficits; Z90.49 Acquired absence of other specified parts of digestive tract; Z98.890 Other specified postprocedural states; Z87.891 Personal history of nicotine dependence; Z88.8 Allergy status to other drugs, medicaments and biological substances
CPT/HCPCS: 36415; 36416; 36430; 36600; 51701; 70450; 70551; 71045; 71250; 71260; 72125; 74018; 74177; 80048; 80053; 80177; 80306; 80307; 81001; 82140; 82533; 82550; 82805; 83690; 83735; 83880; 84100; 84146; 84484; 85025; 85520; 85610; 85730; 86140; 86850; 86900; 86901; 87040; 87070; 87077; 87086; 87186; 87205; 90471; 90694; 93005; 93010; 93970; 94002; 94003; 94640; 94760; 95711; 95816; 95819; 96374; 96375; C9113; C9254; G0008; G0390; J0171; J0360; J0690; J1100; J1630; J1650; J1720; J1940; J1953; J1956; J2001; J2060; J2250; J2270; J2272; J2405; J2543; J2704; J2920; J3010; J3370; J3475; J3490; J7030; J7050; J7070; J7120; J7168; J7611; J7620; P9016; P9047; P9059; S0020; S0028